=== PATIENT | male | born 1940 | race Caucasian/White ===

== ENCOUNTER 2018-10-23 15:53 | Emergency (ER) | payer OTHER, SELFPAY ==
[2018-10-23 15:56] VITALS: BP 145/69; PULSE 105; RESP 20; TEMP 36.8; O2SAT 97
[2018-10-23 16:14] LABS: Blood Large (Negative); Clarity Cloudy; Glucose Negative (Negative); Ketones 15 mg/dL (Negative); Nitrite Negative (Negative)
[2018-10-23 16:17] LABS: Leukocyte Esterase Color Interference (Negative)
[2018-10-23 16:18] LABS: Bilirubin Color Interference (Negative); Urobilinogen Color Interference EU/dL (Up TO 0.2)
[2018-10-23 16:19] LABS: RBC >50 (0-2); WBC 0-2 HPF (0-5)
[2018-10-23 16:20] LABS: C & S Indicated? Yes
--- NOTE | 2018-10-23 16:34 | DI.CT_ITS ---
SYMPTOM/DIAGNOSIS; PAINLESS HEMATURIA ABDOMEN AND PELVIC CT: CT scan of the abdomen and pelvis was performed without intravenous or oral contrast material. The visualized lung bases are clear. The lack of IV contrast does limit evaluation of the abdominal and pelvic organs. There are several hypodense lesions seen within the liver, the largest is in the inferior right lobe and measures 2.9 cm. Ultrasound from 07/03/11 does show hepatic cysts. The gallbladder is negative. It appears contracted. No biliary ductal dilatation is seen. The pancreas, spleen and adrenal glands are unremarkable. There is no evidence of nephrolithiasis or obstructive uropathy. The urinary bladder is intact. The prostate gland appears enlarged measuring 4.9 by 4.9 cm. Prostatic calcifications are seen. There is lobulated soft tissue seen in the base of the bladder. This may represent an enlarged prostate gland projecting into the urinary bladder. Prostate mass or bladder mass cannot be excluded. The bowel shows no evidence of obstruction or inflammation. There is a normal appendix present in the right lower quadrant. The abdominal aorta is of normal caliber. No significant abdominal or pelvic adenopathy is seen. No significant abdominal or pelvic ascites or pneumoperitoneum is present. Degenerative changes are seen in the spine. Schmorl's nodes are seen in the inferior endplates from T 12 through L 4 and the superior endplate of L 5. IMPRESSION: 1. No evidence of nephrolithiasis or obstructive uropathy. 2. Enlarged prostate gland. Soft tissue extension is seen into the base of the urinary bladder. Differential considerations include prostatic hypertrophy. Prostatic or bladder mass cannot be excluded. Urology consult is recommended.
--- NOTE | 2018-10-23 16:38 | ED.GENADUL_ITS ---
Discharge Plan Disposition Patient Disposition: HOME Condition: Good Discharge Details Chief Complaint: Urinary Clinical Impression: Hematuria Primary Care Provider: Tony Jones ED Provider: Jesus Zuniga Home Meds and New Rx's Prescriptions: No Action multivitamin 1 EACH tablet 1 ea PO DAILY RF: 0 terazosin 5 MG capsule 5 mg PO DAILY RF: 0 ascorbic acid (vitamin C) [Vitamin C] 500 MG tablet 500 mg PO DAILY RF: 0 hydrochlorothiazide 25 MG tablet 25 mg PO DAILY RF: 0 sildenafil (antihypertensive) 20 MG tablet 20 mg PO PRN RF: 0 aspirin 81 MG tablet,delayed release (DR/EC) 81 mg PO RF: 0 Discharge Instructions Instructions: Hematuria (ED) Additional Instructions: Your CT scan shows concern for a new mass in your bladder. Your blood levels are stable. Dr. Stinson's office should be contacting you shortly. If you do not hear back within a week please contact the ER. If you notice difficulty urinating, lightheadedness, fainting, palpitations, please return immediately for reassessment. if you notice any worsening of your symptoms, or any new symptoms such as vomiting, diarrhea, fever, chills, shortness of breath, chest pain, numbness, weakness, or fainting , please return immediately to the emergency department for reevaluation. Please follow up with your primary care provider as soon as possible for reassessment and reevaluation. As always, it was a pleasure participating in your medical care today. Referrals: Alexi Stinson MD [ [facility] STAFF PHYSICIAN] - Medical Decision Making This is a pleasant 78-year-old male with a past medical history of prostate enlargement and hypertension who presents today for evaluation of painless hematuria for the last 4 hours. He has no symptoms of back pain, flank pain, history of kidney stones. He denies any other complaints whatsoever. Exam is notably unremarkable with an uncircumcised penis, no urethral discharge, no bleeding, mass or tenderness of the penis or testicles. Due to the patient's age, and lack of history of kidney stones polyp, UTI, cancer, are on the differential. We will get a CT scan to rule out mass of the kidneys or bladder, and a basic laboratory work-up to evaluate for any bleeding abnormalities and reassess. Patient will most likely need close follow-up with urology. 5:[address] scan results have returned, no evidence of urolithiasis, however there is prostate enlargement with possible extension of the prostate into the bladder alternatively this could represent a mass arising within the bladder. Patient's laboratory work up demonstrates normal hemoglobin, normal platelets, normal renal function. Urinalysis shows no nitrites and no leuk esterase, notable RBCs. Signs and symptoms are consistent with continued hematuria potentially secondary to a new mass. The patient continues to be able to urinate well, no evidence of urinary retention. Patient will be discharged home as he is in no acute distress with reassuring vital signs and no signs of significant anemia. We will place a referral for prompt and urgent urology follow-up. We discussed red flags which to return the patient understands. I have extensively reviewed the treatment plan and discharge instructions with the patient and their family. I have addressed all patient concerns at this time. The patient and family was made aware of what symptoms to monitor for that would warrant a return to the emergency department. Discussed the plan with the patient and family, they demonstrate verbal understanding and agreement with our assessment and plan at this time. FINDINGS: ABDOMEN: Liver: Simple appearing lobulated liver cysts are present. The largest is in the inferior right liver lobe and seen to measure up to 2.9 cm. Gallbladder and bile ducts: Normal. No calcified stones. No ductal dilation. Pancreas: No ductal dilation. Spleen: No splenomegaly. Adrenals: No mass. Kidneys and ureters: Bilateral perinephric stranding is likely age-related. No hydronephrosis or stones. DIMITRIPHYLLIS Preliminary Radiology Report [employer] (QA) DISCREPANCY? If there is a discrepancy between the preliminary and final interpretation, please notify [facility] via [email or web address]. If you do not have access to our QA portal, call our QA team at [phone] CONFIDENTIALITY STATEMENT This report is intended only for the use of the referring physician, and only in accordance with law, If you received this in error, call [phone] Page 2 of 2 Stomach and bowel: Normal. No obstruction. No mucosal thickening. Appendix: No evidence of appendicitis. PELVIS: Bladder: Unremarkable as visualized. Reproductive: The prostate is enlarged with lobulation seen extending into the base of the bladder. ABDOMEN and PELVIS: Intraperitoneal space: Normal. No free air. No significant fluid collection. Bones/joints: No acute fracture. No dislocation. Soft tissues: Unremarkable. Vasculature: Atherosclerotic calcifications. Lymph nodes: Normal. No enlarged lymph nodes. IMPRESSION: Prostate enlargement with possible extension of the prostate into the bladder. Alternatively, this could represent a mass arising within the bladder, but adjacent to the prostate gland. Consider urology evaluation given hematuria. Thank you for allowing us to participate in the care of your patient. Dictated and Authenticated by: Jefferson López MD 10/23/2018 5:30 PM Eastern Time ([place] & [place]) HPI General Date/Time Provider Initiated Documentation: 10/23/18 16:03 . HPI Narrative: This is a 78-year-old male with past medical history of hypertension and enlarged prostate presents today for evaluation of painless hematuria. Patient states that roughly 4 hours ago he developed this hematuria when he had a urinary episode. 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 He denies any other complaints at this time. He denies any history of kidney stones. No other modifying factors. He is not on any blood thinners. Related Data Home Medications Medication Instructions Recorded Confirmed ascorbic acid (vitamin C) [Vitamin 500 mg PO DAILY 11/19/12 10/23/18 C] hydrochlorothiazide 25 mg PO DAILY tab-cap 11/19/12 10/23/18 multivitamin 1 ea PO DAILY 11/19/12 10/23/18 terazosin 5 mg PO DAILY tab-cap 11/19/12 10/23/18 sildenafil (antihypertensive) 20 mg PO PRN 11/20/12 10/23/18 aspirin 81 mg PO 11/05/17 Allergies Allergy/AdvReac Type Severity Reaction Status Date / Time ciprofloxacin [From Cipro] AdvReac Intermediate Skin Rash Unverified 10/23/18 15:57 BEE STINGS Allergy Uncoded 10/23/18 15:57 General Stated Complaint: Urinary RAY: 3 Review of Systems Review of Systems All systems reviewed & are unremarkable except as noted in HPI and below PFSH Medical History AVM LEFT COLON Adenomatous colon polyp BPH Bee sting allergy Dysthymia Essential hypertension HTN (hypertension) Hypercholesterolemia Hyperlipidemia Left inguinal hernia Low back pain Male erectile disorder Orthostatic dizziness Seborrheic keratosis Surgical History Colonoscopy - IV Sedation Family History Father Personal history of malignant neoplasm Uncle Personal history of malignant neoplasm Social History Smoking/Tobacco Use Status: Former Tobacco Use Drug use: Never Exam Narrative Exam Narrative: 1.Const: Well-nourished, Well-developed, appearing stated age 2.Eyes: PERRL, no conjunctival injection, and symmetrical lids. 3.ENT: Atraumatic external nose and ears. Moist MM. Neck: Symmetric, trachea midline, No thyromegaly. 4.CVS: +S1/S2, No murmurs or gallops. Peripheral pulses 2+ and equal in all extremities. Brisk capillary refill in all extremities. 5.RESP: Unlabored respiratory effort. Clear to auscultation bilaterally. No wheezes rales or rhonchi 6.GI: Soft, Nontender/Nondistended, No hepatosplenomegaly. No guarding or rebound. Normal external genitalia, no penile discharge, no indirect or direct inguinal hernia palpable when the patient stands up and/or bears down, no scrotal masses, no femoral groin pain for femoral bulge palpable, normal testes, non painful testicular exam, normal cremasteric reflex bilaterally. no urethral discharge or bleeding. no pain over the penis. 7.MSK: Normocephalic/Atraumatic, Extremities w/o deformity or ttp No cyanosis or clubbing, Normal movement of all extremities 8.Skin: Warm, Dry. No rashes or lesions. 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 Sensation grossly intact, no focal neurologic deficits. 10.Psych: (AAO) x3. Appropriate mood and affect Course Vital Signs Temperature 36.8 C 10/23/18 15:56 Pulse 105 H 10/23/18 15:56 Respiratory Rate 20 10/23/18 15:56 Blood Pressure 145/69 H 10/23/18 15:56 Pulse Oximetry 97 10/23/18 15:56 Temperature 36.8 C 10/23/18 15:56 Temperature Source Temporal Artery Scan 10/23/18 15:56 Pulse 105 H 10/23/18 15:56 Respiratory Rate 20 10/23/18 15:56 Respiratory Effort Non-Labored 10/23/18 15:56 Blood Pressure 145/69 H 10/23/18 15:56 Pulse Oximetry 97 10/23/18 15:56 Oxygen Delivery Method Room Air 10/23/18 15:56 Oxygen Flow Rate 0 10/23/18 15:56 Pain Level 0 10/23/18 15:58 Lab/Test Results Lab/Test Results: 10/23/18 16:02 Urine - Reflex from Ua Urine Culture - Pending Laboratory Tests Range/Units 10/23/18 16:02 Urine Color (Yellow) Red Urine Clarity Cloudy Urine pH Not Applicable Ur Specific [place] (1.005-1.025) 1.010 Urine Protein (Negative) mg/dL >=300 H Urine Ketones (Negative) mg/dL 15 H Urine Blood (Negative) Large H Urine Nitrite (Negative) Negative Urine Bilirubin (Negative) Color interference Urine Urobilinogen (Up TO 0.2) EU/dL Color interference Ur Leukocyte Esterase (Negative) Color interference Urine RBC (0-2) >50 H Urine WBC (0-5) HPF 0-2 Ur Epithelial Cells Not Applicable Urine Crystals Not Applicable Urine Bacteria Not Applicable Urine Mucus Not Applicable Ur Culture Indicated? Yes Urine Glucose (Negative) mg/dL Negative
[2018-10-23 16:47] LABS: Absolute Basophil Count 0.02 k/cumm (0.0-0.2); Absolute Eosinophil Count 0.12 k/cumm (0.0-0.7); Absolute Lymphocyte Count 0.95 k/cumm (1.2-3.4); Absolute Monocyte Count 0.55 k/cumm (0.11-0.7); Absolute Neutrophil Count 2.89 k/cumm (1.2-6.7); Basophils % 0.4; Eosinophils % 2.6; HCT 39.4 % (40.0-50.0); HGB 13.6 g/dL (13.5-17.5); Mean Corp. HGB Concentration 34.5 g/dL (32.0-36.0); Mean Corpuscular Hemoglobin 33.8 pg (27.0-33.0); Monocytes % 12.1; Neutrophils % 63.9; Platelet Count 130 x1000/uL (130-400); RBC 4.02 m/cumm (4.50-6.00); White Blood Cell Count 4.53 k/cumm (4.4-10.8)
[2018-10-23 16:59] LABS: PTT Activated 23.4 sec (21.0-31.4); Prothrombin Time 9.9 sec (9.3-11.0)
[2018-10-23 17:23] LABS: ALT 28 U/L (12-78); AST 23 U/L (15-37); Albumin 4.2 g/dL (3.4-5.0); Alkaline Phosphatase 66 U/L (46-116); Anion Gap 8.4 mmol/L (3-11); BUN 13 mg/dL (7-18); Bilirubin, Total 0.5 mg/dL (0.2-1.0); CO2 27.6 mmol/L (21.0-32.0); CREATININE 0.83 mg/dL (0.70-1.30); Chloride 104 mmol/L (98-107); Glucose 98 mg/dL (70-100); Potassium 3.7 mmol/L (3.5-5.1); Sodium 140 mmol/L (136-145)
[2018-10-23 17:42] LABS: Total Protein 7.3 g/dL (6.4-8.2)
[2018-10-23 18:00] VITALS: BP 143/77; PULSE 72; RESP 18; O2SAT 100
--- NOTE | 2018-10-23 20:41 | DI.VRAD_ITS ---
EXAM: CT Abdomen and Pelvis Without Contrast EXAM DATE/TIME: 10/23/2018 4:35 PM CLINICAL HISTORY: 78 years old, male; Signs and symptoms; Prior surgery; Surgery date: 6+ months; Surgery type: Hernia repair 2 years ago. ; Patient HX: Gross hematuria with no pain, no flank pain, no HX of kidney stones. TECHNIQUE: Imaging protocol: Axial computed tomography images of the abdomen and pelvis without contrast. Coronal and sagittal reformatted images were created and reviewed. Radiation optimization: All CT scans at this facility use at least one of these dose optimization techniques: automated exposure control; mA and/or kV adjustment per patient size (includes targeted exams where dose is matched to clinical indication); or iterative reconstruction. COMPARISON: No relevant prior studies available. FINDINGS: ABDOMEN: Liver: Simple appearing lobulated liver cysts are present. The largest is in the inferior right liver lobe and seen to measure up to 2.9 cm. Gallbladder and bile ducts: Normal. No calcified stones. No ductal dilation. Pancreas: No ductal dilation. Spleen: No splenomegaly. Adrenals: No mass. Kidneys and ureters: Bilateral perinephric stranding is likely age-related. No hydronephrosis or stones. Stomach and bowel: Normal. No obstruction. No mucosal thickening. Appendix: No evidence of appendicitis. PELVIS: Bladder: Unremarkable as visualized. Reproductive: The prostate is enlarged with lobulation seen extending into the base of the bladder. ABDOMEN and PELVIS: Intraperitoneal space: Normal. No free air. No significant fluid collection. Bones/joints: No acute fracture. No dislocation. Soft tissues: Unremarkable. Vasculature: Atherosclerotic calcifications. Lymph nodes: Normal. No enlarged lymph nodes. IMPRESSION: Prostate enlargement with possible extension of the prostate into the bladder. Alternatively, this could represent a mass arising within the bladder, but adjacent to the prostate gland. Consider urology evaluation given hematuria. Dictated and Authenticated by: Jefferson López MD. Ordering:BEN Lee MD
--- NOTE | 2018-10-28 07:59 | PDOC.ERCMPRO ---
Care Management Progress Note 10/28-Dr. Zuniga requested assistance with an emergent urology f/u for anabell hematuria/new bladder mass. Referral faxed to urology this am.
== END 2018-10-23 17:57 | disposition home or self-care (01) ==
PROVIDERS: Emergency Provider Student in an Organized Health Care Education/Training Program; PCP Internal Medicine
DX: N40.1 Benign prostatic hyperplasia with lower urinary tract symptoms (principal); R31.9 Hematuria, unspecified; I10 Essential (primary) hypertension
CPT/HCPCS: 80053; 99284; 74176; 81003; 81015; 85025; 85610; 85730; 87086

== ENCOUNTER → 2018-10-28 12:33 | Outpatient (BNVA) | payer OTHER, SELFPAY | PROVIDERS: PCP Internal Medicine; Visit Provider Nurse Practitioner Gerontology | DX: R31.0 Gross hematuria (principal); N40.0 Benign prostatic hyperplasia without lower urinary tract symptoms; Z80.42 Family history of malignant neoplasm of prostate | CPT/HCPCS: 99204; 99215 ==

== ENCOUNTER 2018-11-10 09:09 | Day surgery (SDC) | payer OTHER, SELFPAY ==
[2018-11-10] VITALS (8 sets, daily range): BP systolic 126–168; BP diastolic 69–81; PULSE 58–80; RESP 9–16; TEMP 35.7–36.7; O2SAT 95–100
--- NOTE | 2018-11-10 09:38 | DI.RAD_ITS ---
SYMPTOMS/DIAGNOSIS: HEMATURIA C-ARM FLUOROSCOPY: Fluoroscopy Time: 35.2 sec Fluoroscopy was provided for Dr. Stinson while performing a retrograde examination. Please see procedure note for details.
[2018-11-10] MEDS: Lactated Ringers 1,000 ML 80 ML IV (10:15)
[2018-11-10] MEDS: ceFAZolin 1 GM/50 ML BAG IVPB (10:30)
[2018-11-10] MEDS: Lidocaine 2% Jelly 11 ML SYR (10:37)
[2018-11-10] MEDS: Omnipaque 300 MG/ML 50 ML BTL (10:37)
--- NOTE | 2018-11-10 11:07 | W.PM.DSUDISC ---
Discharge Plan Disposition Patient Disposition: HOME Condition: Stable Discharge Details Attending Provider: Alexi Stinson Primary Care Provider: Tony Jones Home Meds and New Rx's Prescriptions: No Action atorvastatin 20 mg tablet 20 mg PO DAILY RF: 0 lisinopril 5 mg tablet 5 mg PO DAILY RF: 0 multivitamin 1 EACH tablet 1 ea PO DAILY RF: 0 terazosin 5 MG capsule 5 mg PO DAILY RF: 0 ascorbic acid (vitamin C) [Vitamin C] 500 MG tablet 500 mg PO DAILY RF: 0 aspirin 81 MG tablet,delayed release (DR/EC) 81 mg PO RF: 0 Discharge Instructions Additional Instructions: follow up 3 months (sooner if problems urinating) pt must void prior to discharge Activity:: Activity as Tolerated Shower/Bathe:: 24 hours Diet:: As Tolerated DS: Diagnosis Discharge Diagnosis (1) Gross hematuria: Status: Acute
[2018-11-10] MEDS: Finasteride 5 MG TAB PO ×2 (11:44→11:46)
[2018-11-10] MEDS: Phenazopyridine 200 MG TAB PO (12:32)
--- NOTE | 2018-11-10 15:31 | ROE_ITS ---
DATE OF PROCEDURE: November 10, 2018 PREOPERATIVE DIAGNOSIS: Gross hematuria. POSTOPERATIVE DIAGNOSIS: Same secondary to prostatic enlargement. PROCEDURE: Cystoscopy with right retrograde pyelogram. SURGEON: Alexi Stinson M.D. ANESTHESIA: General. COMPLICATIONS: None. HISTORY: This is a 78-year-old gentleman who presented to the Emergency Room with gross hematuria an d clots. He was evaluated with a non-contrast CT scan which demonstrated no kidney stones and no felisha al masses. There was some tissue at the base of his bladder which was unclear as to whether it invol malik the prostate or a bladder mass. He presents for a cystoscopy and retrograde pyelogram to complet e his hematuria workup. If any abnormality is identified, we will be prepared to do a transurethral resection of any bladder tumor. OPERATIVE REPORT: The patient was brought to the Operating Room on 11/10/18. After successful induct ion of general anesthesia, he was placed in the dorsal lithotomy position. His genitalia was prepped and draped. A 22 [place] rigid cystoscope was passed through the urethra into the bladder. The urethra and bladde r were inspected with the 30-degree lens. The pendulous, bulbous and membranous urethras all appeared normal with no strictures. The prostatic urethra showed trilobar hypertrophy. No active bleeding was identified, but the prostate appeared q uite friable and did develop some hematuria when I passed the scope. In the bladder I was able to visualize both ureteral orifices. No blood was seen coming from either side. I was unable to cannulate either side directly with a 6 [place] access catheter. I was, nasima r, able to pass a Glidewire into the right ureteral orifice. I then advanced the access catheter ove r the wire and was able to do a retrograde pyelogram. I did not see any filling defects in the ureter or collecting systems. There was some extravasation of contrast from over-injection on the retrograde. On the left side I again could visualize the ureteral orifice and see no blood coming from it, but I was unable to cannulate the orifice with wire or catheter. We then elected not to do the left retrog rade pyelogram. We inspected the remainder of the bladder using both a 30 and a 70-degree lens. We saw that the blad viviana was trabeculated, but no papillary or nodular lesions were seen. The bladder was emptied and the scope was removed. Based on today's examination it appears that the bleeding is a result of prostatic enlargement. We will treat this gentleman with a 5-alpha reductase inhibitor to decrease the size and vascularity of the prostate. If the hematuria persists we can al ways vaporize the prostate with a plasma button. The patient tolerated this procedure well. There were no complications. cc: Tony Jones M.D.
== END 2018-11-10 13:08 | disposition home or self-care (01) ==
PROVIDERS: PCP Internal Medicine; Visit Provider Urology
PROC: (CPT 74450; principal; 2018-11-10 11:00)
DX: N40.1 Benign prostatic hyperplasia with lower urinary tract symptoms (principal); R31.0 Gross hematuria; N32.89 Other specified disorders of bladder
CPT/HCPCS: 52005; 74420; J0690; J1100; J1885; J2405; Q9967

== ENCOUNTER 2018-11-16 11:12 | Inpatient (IN) | payer OTHER, SELFPAY ==
[2018-11-16 11:18] VITALS: BP 147/68; PULSE 83; RESP 14; TEMP 36.7; O2SAT 96
--- NOTE | 2018-11-16 12:09 | NUR.NOTE ---
Nursing Note:rn atempted to place 16 FR folley however unable to get past clot
[2018-11-16] MEDS: Lidocaine 2% Jelly 11 ML SYR UR (13:19)
--- NOTE | 2018-11-16 14:47 | NUR.NOTE ---
Nursing Note: 3 way urethral catheter errigated with 1L of NS 50-60 small clots passed last 250 of NS light pink free of clots
[2018-11-16 14:55] LABS: Bilirubin Negative (Negative); Blood Large (Negative); Clarity Cloudy; Glucose Negative (Negative); Ketones Negative (Negative); Leukocyte Esterase Negative (Negative); Nitrite Negative (Negative); Urobilinogen 0.2 EU/dL (Up TO 0.2)
[2018-11-16 14:57] LABS: C & S Indicated? No
--- NOTE | 2018-11-16 15:44 | W.ED.GENAD ---
Discharge Plan Disposition Patient Disposition: [facility] INPATIENT Condition: Good Discharge Details Chief Complaint: Urinary Clinical Impression: Gross hematuria Admit Date/Time: 11/16/18 17:42 Admit Provider: Roxi De La Fuente Attending Provider: Roxi De La Fuente Primary Care Provider: Tony Jones ED Provider: Jesus Zuniga Hospital Course Hospital Course: Mr Bettencourt is a 78 year old male with past medical history significant for hematuria due to prostatic hypertrophy, having undergone cystoscopy with retrograde pyelogram on 11/10/[address] Stinson in workup thereof, as well as hypertension, hyperlipidemia, depression, who presented to the ED on 11/16/18 with hematuria, as well as dysuria, frequency, urgency and inability to empty his bladder. In the ED, he passed a large blood clot with relief of symptoms. A three-way urinary catheter was inserted and CBI initiated in the ED. He was admitted to the floor for continuous bladder irrigation. He remained on CBI overnight. He was seen by Urology this morning who noted that his urine was clear with the bladder irrigation running at a slow rate. He preformed hand irrigation and did not obtain any additional clots. He discontinued the CBI. His urine remained clear and the cleary catheter was discontinued. He was able to void without significant urinary retention. He initially had some small clots in his urine but they eventually cleared. His urine remained clear. His bladder scans showed 60-80s. His case was discussed with Dr. Stinson who felt the patient was safe for discharge. He was previously started on Finasteride and terazosin. If this regimen is not successful, urology will consider a vaporization of the prostate. He is discharged home on this regimen and he will follow up with Urology as an outpatient. He will follow up with his PCP as scheduled. Given the hematuria, he will be asked to hold his aspirin until his PCP clears him to restart it. Discharge Instructions Instructions: Benign Prostatic Hypertrophy (DC) Additional Instructions: Follow up with urology as scheduled. You should call Dr. Stinson's office to see if he wants you to be seen before January. Continue taking Finasteride and terazosin. Do not take aspirin until your PCP says it is safe to restart it. Follow up with your PCP as scheduled. Take care! Forms: Nursing Discharge Form Referrals: Alexi Stinson MD [ [facility] STAFF PHYSICIAN] - 02/23/19 8:30 am Tony Jones MD [Primary Care Provider] - 12/01/18 2:45 pm Discharge Data Discharge Date/Time-TO BE ENTERED AT DEPARTURE: 11/16/18 18:30 Medical Decision Making <Jay Houser NP - Last Filed: 11/23/18 08:58> Patient presenting to the emergency department for chief complaint of bloody urination and difficulty with urinating. Patient states that he recently had a procedure done by Dr. Stinson 5 days ago. Physical exam is unremarkable except for mild suprapubic tenderness. staff therapist did bladder scan that showed greater than 400 mL's retained in the bladder. staff therapist attempted to place Cleary catheter which they were not able to put in place. Urojet was utilized prior to insertion of a three-way catheter. When I entered the room to put in the three-way catheter patient had passed a large clot that was approximately 2 inches in size. Patient stated relief of symptoms after passing a clot. Three-way catheter was inserted using sterile technique. Patient continued to have hematuria with clot passage. Patient had 1 L of irrigation with staff therapist stating significant passage of clots. Due to this continuous bladder irrigation was ordered. Patient is otherwise stable. Review of urinalysis shows negative for nitrates and leukocyte esterase but significant amount of blood. Given this and that patient is afebrile I do not think this is due to infection but more due to bleeding. Patient placed up on continuous bladder irrigation. <Jesus Zuniga DO - Last Filed: 11/16/18 17:43> The case was signed out to me by my colleague Jay Houser. Please refer to his documentation for initial HPI. Patient was signed out pending improvement of symptoms with continuous bladder irrigation. Unfortunately there are no more clots but he does have continued notable blood with his irrigation. He remains hemodynamically stable. Multiple attempts were attempted to reach Dr. Stinson, however of note he is not on-call. We have not been able to get in contact with him. Although I do not feel that there is any indication for emergent management, I do feel that the patient still requires a Cleary for this current time. I had a long conversation with the patient and his about going home and flushing the Cleary versus staying here. At this time the patient and his do not feel comfortable with going home and flushing it on their own if he does develop a clot. I completely understand her position. Because of this I did contact the hospitalist Dr. De La Fuente discussed the case with her. She agrees with the current plan. She will place admission orders. Patient will be admitted for continuous bladder irrigation. I have extensively reviewed the treatment plan with the patient. I have addressed all patient concerns at this time. I have also discussed the plan with the admitting physician and they agree with the current assessment and plan and have agreed to assume responsibility for the patient. All parties demonstrate verbal understanding and agreement with our assessment and plan at this time. We did order basic labs, which have not yet returned. Hospitalist will be following up on these. HPI <Jay Houser NP - Last Filed: 11/23/18 08:58> General Mode of arrival: ambulatory. Date/Time Provider Initiated Documentation: 11/16/18 11:26. Limitations to Documentation: no limitations. Information obtained by: patient, RN notes reviewed and old records reviewed. History of Present Illness 78 year old M presents to the emergency department with the chief complaint of Difficulty urinating, described as moderate, with intensity rated at 2. Quality is described as burning, and is localized to the pelvis (Penis, with urination). Patient started experiencing this day(s) (1) and it has been constant. Patient notes no other symptoms.. Patient did receive the following treatments prior to arrival, none Related Data Home Medications Medication Instructions Recorded Confirmed ascorbic acid (vitamin C) [Vitamin 500 mg PO DAILY 11/19/12 11/16/18 C] multivitamin 1 ea PO DAILY 11/19/12 11/16/18 atorvastatin 20 mg tablet 20 mg PO DAILY 10/28/18 11/16/18 lisinopril 5 mg tablet 5 mg PO DAILY 10/28/18 11/16/18 finasteride 5 mg PO DAILY #90 tab 11/10/18 11/16/18 terazosin 10 mg PO DAILY 11/16/18 11/16/18 cephalexin 500 mg capsule 500 mg PO BID #10 cap 11/18/18 11/18/18 tramadol 50 mg tablet 50 mg PO Q6H PRN #12 tab 11/18/18 11/18/18 Previous Rx's Medication Instructions Recorded finasteride 5 mg PO DAILY #90 tab 11/10/18 cephalexin 500 mg capsule 500 mg PO BID #10 cap 11/18/18 tramadol 50 mg tablet 50 mg PO Q6H PRN #12 tab 11/18/18 Allergies Allergy/AdvReac Type Severity Reaction Status Date / Time ciprofloxacin [From Cipro] AdvReac Intermediate Skin Rash Verified 11/16/18 11:21 BEE STINGS Allergy Uncoded 10/23/18 15:57 General Stated Complaint: Urinary RAY: 3 Review of Systems <Jay Houser NP - Last Filed: 11/23/18 08:58> Constitutional Denies body ache(s), Denies chills, Denies fever(s), Denies malaise and Denies weakness Cardiovascular Denies chest pain Respiratory Reports system reviewed and no additional complaints, except as docu Gastrointestinal Denies abdominal pain, Denies nausea and Denies vomiting Genitourinary Reports as per HPI, Reports hematuria, Reports difficulty urinating, Reports dysuria, Denies flank pain, Denies penile discharge, Denies scrotal swelling, Reports urinary incontinence and Reports urinary urgency Neurologic Denies confusion and Denies weakness Psychiatric Denies confusion PFSH <Jay Houser NP - Last Filed: 11/23/18 08:58> Medical History AVM LEFT COLON Adenomatous colon polyp BPH Bee sting allergy Dysthymia Essential hypertension HTN (hypertension) Hypercholesterolemia Hyperlipidemia Left inguinal hernia Low back pain Male erectile disorder Orthostatic dizziness Seborrheic keratosis Surgical History Hx of cystoscopy (Chronic) H/O inguinal hernia repair (Chronic) Colonoscopy - IV Sedation Family History Father Personal history of malignant neoplasm Prostate cancer Uncle Personal history of malignant neoplasm Prostate cancer Social History Smoking/Tobacco Use Status: Former Tobacco Use Alcohol Intake: current Alcohol Intake frequency: 0-2 drinks per day Alcohol type: beer Drug use: Never Substance use type: does not use Do you feel safe at home: Yes Do you feel safe in your relationship?: Yes Exam <Jay Houser NP - Last Filed: 11/23/18 08:58> Const General: cooperative and no acute distress Orientation: alert, awake and oriented x3 Resp Effort & Inspection: normal respiratory effort and able to speak in complete sentences Auscultation: clear to auscultation bilaterally Cardio Rate: regular rate Rhythm: regular rhythm Heart Sounds: S1 normal and S2 normal GI Palpation: tender suprapubicly Penis: normal penis Meatus: meatus normal Testes: testicular swelling on the right and no testicular tenderness Back/Spine/Pelvis Back: no CVA tenderness Neuro General: alert, awake and oriented x3 Extrem General: normal capillary refill Course <aJy Houser NP - Last Filed: 11/23/18 08:58> Vital Signs Temperature 36.7 C 11/16/18 11:18 Pulse 83 11/16/18 11:18 Respiratory Rate 14 11/16/18 11:18 Blood Pressure 147/68 H 11/16/18 11:18 Pulse Oximetry 96 11/16/18 11:18 Temperature 36.7 C 11/16/18 11:18 Temperature Source Temporal Artery Scan 11/16/18 11:18 Pulse 83 11/16/18 11:18 Respiratory Rate 14 11/16/18 11:18 Respiratory Effort Non-Labored 11/16/18 11:19 Blood Pressure 147/68 H 11/16/18 11:18 Blood Pressure Position Sitting 11/16/18 11:18 Pulse Oximetry 96 11/16/18 11:18 Pain Level 2 11/16/18 11:18 Lab/Test Results Lab/Test Results: Laboratory Tests Range/Units 11/16/18 14:40 Urine Color (Yellow) Red Urine Clarity Cloudy Urine pH (5-8) 7.0 Ur Specific [place] (1.005-1.025) 1.020 Urine Protein (Negative) mg/dL 100 H Urine Ketones (Negative) mg/dL Negative Urine Blood (Negative) Large H Urine Nitrite (Negative) Negative Urine Bilirubin (Negative) Negative Urine Urobilinogen (Up TO 0.2) EU/dL 0.2 Ur Leukocyte Esterase (Negative) Negative Urine RBC (0-2) Urine WBC Not Applicable Ur Epithelial Cells Not Applicable Urine Crystals Not Applicable Urine Bacteria Not Applicable Urine Mucus Not Applicable Ur Culture Indicated? No Urine Glucose (Negative) mg/dL Negative Sign Out <Jay Houser NP - Last Filed: 11/23/18 08:58> Sign Out Data: Sign Out Comment: Pending continuous bladder irrigation patient signed out to Dr. Zuniga. Last updated by Jay Houser NP at 11/16/18 15:59
[2018-11-16 17:52] VITALS: BP 140/65; PULSE 83; RESP 16; TEMP 36.7; O2SAT 98
[2018-11-16 17:57] LABS: Abs Immature Grans 0.01 k/cumm (0.0-0.09); Absolute Basophil Count 0.02 k/cumm (0.0-0.2); Absolute Eosinophil Count 0.06 k/cumm (0.0-0.7); Absolute Lymphocyte Count 0.91 k/cumm (1.2-3.4); Absolute Monocyte Count 0.68 k/cumm (0.11-0.7); Absolute Neutrophil Count 5.24 k/cumm (1.2-6.7); Basophils % 0.3; Eosinophils % 0.9; HCT 37.4 % (40.0-50.0); HGB 12.8 g/dL (13.5-17.5); Immature Grans % 0.1; Lymphocytes % 13.2; Mean Corp. HGB Concentration 34.2 g/dL (32.0-36.0); Mean Corpuscular Hemoglobin 33.6 pg (27.0-33.0); Mean Corpuscular Volume 98.2 fL (80-95); Mean Platelet Volume 9.5 fL (8.0-11.0); Monocytes % 9.8; Neutrophils % 75.7; Platelet Count 150 x1000/uL (130-400); RBC 3.81 m/cumm (4.50-6.00); RBC Distribution Width 13.1 % (11.8-14.1); White Blood Cell Count 6.92 k/cumm (4.4-10.8)
[2018-11-16 18:11] LABS: ALT 28 U/L (12-78); AST 22 U/L (15-37); Albumin 3.7 g/dL (3.4-5.0); Alkaline Phosphatase 66 U/L (46-116); Anion Gap 8.6 mmol/L (3-11); BUN 12 mg/dL (7-18); Bilirubin, Total 0.7 mg/dL (0.2-1.0); CO2 28.4 mmol/L (21.0-32.0); CREATININE 0.81 mg/dL (0.70-1.30); Calcium 8.9 mg/dL (8.5-10.1); Chloride 108 mmol/L (98-107); Glucose 106 mg/dL (70-100); Sodium 145 mmol/L (136-145); Total Protein 6.8 g/dL (6.4-8.2)
[2018-11-16 18:31] VITALS: BP 140/65; PULSE 83; RESP 16; TEMP 36.7; O2SAT 98
[2018-11-16 18:41] VITALS: BP 149/76; PULSE 64; RESP 17; TEMP 36.1; O2SAT 97
--- NOTE | 2018-11-16 19:15 | NUR.NOTE ---
Nursing Note: Pt to [facility] floor via stretcher from ER at 1835. A&Ox3. VSS, lungs clear, HR regular. Three way bladder irrigation/catheter in place. Pt oriented to [facility] floor, call mao, TV, etc. Call mao within reach. Admission part II completed. Report given to oncoming RN. RN will continue to monitor.
[2018-11-16 19:20] VITALS: BP 160/83; PULSE 66; RESP 16; TEMP 35.8; O2SAT 98
--- NOTE | 2018-11-16 19:55 | W.PM.HP.N ---
Date of service: 11/16/18 Time of Service: 19:57 Assessment and Plan (1) Gross hematuria: Current visit: No Status: Acute Patient underwent cystoscopy with bilateral retrograde pyelogram on 11/10/18. Continue CBI initiated in ED; consult urology in am. (2) Enlarged prostate: Current visit: No Status: Chronic Continue terazosin and proscar (3) Coarse tremors: Current visit: Yes Status: Acute While my impression that these are likely due to anxiety, the patient did have recent instrumentation. There is no evidence of UTI, but we will obtain blood cultures to ensure no bacteremia. Additionally, the patient does drink alcohol on daily basis. I am not convinced that he abuses it, but to be safe we will assess CIWA/provide prn ativan and vitamins. (4) Hypertension: Current visit: Yes Status: Chronic Continue lisinopril (5) Hyperlipidemia: Current visit: Yes Status: Acute continue atorvastatin (6) Discharge planning issues: Current visit: Yes Status: Acute Full code (7) DVT prophylaxis: Current visit: Yes Status: Acute TEDs + SCDs. We will hold chemical DVT ppx due to hematuria History of Present Illness Chief Complaint: Blood in urine; difficulty urinating Narrative: Mr Bettencourt is a 78 year old male with PMHx of hematuria due to prostatic hypertrophy, having undergone cystoscopy with retrograde pyelogram on 11/10/[address] Stinson in workup thereof, as well as hypertension, hyperlipidemia, depression, who stated that ever since this morning he has had worsening of hematuria, as well as dysuria, frequency, urgency and inability to empty his bladder. In the ED, he passed a large blood clot with relief of symptoms. A three-way urinary catheter was inserted and CBI initiated. We were asked to admit the patient for further care with urology follow up in the morning. Upon my interview, patient specifically denies fevers at home, but states he occasionally gets tremors when he is in tight situations, when he is out of his comfort zone or when he is angry. He is having generalized tremors at the time of the interview. He states he is not angry at anyone at this time, admits to possibly being anxious. He is afebrile at the time of the interview, and his BG is 155. Review of Systems Review of Systems 12 systems reviewed. Pertinent positives and negatives are as per HPI. Additionally, the patient states that his last drink was yesterday. He states he does not normally go into alcohol withdrawal, but he also states he hasn't tried to stop. He has never had a seizure. [facility] Medical History AVM LEFT COLON Adenomatous colon polyp BPH Bee sting allergy Dysthymia Essential hypertension HTN (hypertension) Hypercholesterolemia Hyperlipidemia Left inguinal hernia Low back pain Male erectile disorder Orthostatic dizziness Seborrheic keratosis Surgical History Hx of cystoscopy (Chronic) H/O inguinal hernia repair (Chronic) Colonoscopy - IV Sedation Family History Father Personal history of malignant neoplasm Prostate cancer Uncle Personal history of malignant neoplasm Prostate cancer Social History Smoking/Tobacco Use Status: Former Tobacco Use Alcohol Intake: current Alcohol Intake frequency: 0-2 drinks per day Alcohol type: beer Drug use: Never Substance use type: does not use Do you feel safe at home: Yes Do you feel safe in your relationship?: Yes Meds Home Medications Medication Instructions Recorded Confirmed Type ascorbic acid (vitamin C) [Vitamin 500 mg PO DAILY 11/19/12 11/16/18 History C] multivitamin 1 ea PO DAILY 11/19/12 11/16/18 History aspirin 81 mg PO 11/05/17 10/28/18 History atorvastatin 20 mg tablet 20 mg PO DAILY 10/28/18 11/16/18 History lisinopril 5 mg tablet 5 mg PO DAILY 10/28/18 11/16/18 History finasteride 5 mg PO DAILY #90 tab 11/10/18 11/16/18 Rx terazosin 10 mg PO DAILY 11/16/18 11/16/18 History Allergies Allergy/AdvReac Type Severity Reaction Status Date / Time ciprofloxacin [From Cipro] AdvReac Intermediate Skin Rash Verified 11/16/18 11:21 BEE STINGS Allergy Uncoded 10/23/18 15:57 Exam Narrative Exam Narrative: General: Pleasant middle-aged male, tremulous diffusely, comfortable in bed, A&Ox3, anxious Neurological: A&Ox3, no focal deficits Psychiatric: anxious, affect somewhat flat; tremors appear a part of anxiety Skin: intact HEENT: Atraumatic, normocephalic, EOMI, dry MM, clear oropharynx, dry MM, no submandibular or cervical lymphadenopathy, no goiter or JVD Cardiovascular: RRR, no m/r/g, occasional skipped beat Lungs: CTAB Gastrointestinal: abdomen is soft, nontender, nondistended Genitourinary: has a cleary, connected to CBI, blood tinged urine (caballero) Extremities: no e/c/c BLE's, 2+ pedal pulses B Results Labs : 11/16/18 17:40 11/16/18 17:40 Laboratory Results - last 24 hr 11/16/18 11/16/18 11/16/18 14:40 17:40 17:40 WBC 6.92 RBC 3.81 L Hgb 12.8 L Hct 37.4 L MCV 98.2 H MCH 33.6 H MCHC 34.2 RDW 13.1 Plt Count 150 MPV 9.5 Immature Gran % 0.1 Neutrophils % 75.7 Lymphocytes % 13.2 Monocytes % 9.8 Eosinophils % 0.9 Basophils % 0.3 Absolute Neutrophils 5.24 Absolute Lymphocytes 0.91 L Absolute Monocytes 0.68 Absolute Eosinophils 0.06 Absolute Basophils 0.02 Sodium 145 Potassium 4.0 Chloride 108 H Carbon Dioxide 28.4 Anion Gap 8.6 BUN 12 Creatinine 0.81 Estimated GFR/1.73 m2 >= 60.00 Glucose 106 H Calcium 8.9 Total Bilirubin 0.7 AST 22 ALT 28 Alkaline Phosphatase 66 Total Protein 6.8 Albumin 3.7 Urine Color Red Urine Clarity Cloudy Urine pH 7.0 Ur Specific [place] 1.020 Urine Protein 100 H Urine Ketones Negative Urine Blood Large H Urine Nitrite Negative Urine Bilirubin Negative Urine Urobilinogen 0.2 Ur Leukocyte Esterase Negative Urine RBC Urine WBC Not Applicable Ur Epithelial Cells Not Applicable Urine Crystals Not Applicable Urine Bacteria Not Applicable Urine Mucus Not Applicable Ur Culture Indicated? No Urine Glucose Negative Last Vital Signs Temp 36.1 C L 11/16/18 18:41 Pulse 64 11/16/18 18:41 Resp 17 11/16/18 18:41 BP 149/76 H 11/16/18 18:41 Pulse Ox 97 11/16/18 18:41
[2018-11-16] MEDS: LORazepam 1 MG TAB PO/SL (20:31)
[2018-11-16 23:42] VITALS: BP 121/65; PULSE 72; RESP 20; TEMP 36.8; O2SAT 97
[2018-11-17 03:35] VITALS: BP 117/69; PULSE 69; RESP 18; TEMP 36.7; O2SAT 97
[2018-11-17 06:52] LABS: HCT 37.1 % (40.0-50.0); HGB 12.7 g/dL (13.5-17.5); Mean Corp. HGB Concentration 34.2 g/dL (32.0-36.0); Mean Corpuscular Volume 99.5 fL (80-95); Mean Platelet Volume 9.5 fL (8.0-11.0); Platelet Count 139 x1000/uL (130-400); RBC 3.73 m/cumm (4.50-6.00); RBC Distribution Width 13.5 % (11.8-14.1)
--- NOTE | 2018-11-17 07:05 | UCONE_ITS ---
Date of service: 11/17/18 Time of Service: 07:20 History of Present Illness Narrative: Chief complaint: Gross hematuria This is a 78-year-old gentleman who was originally referred to us from the emergency room. He had presented with gross hematuria. His initial evaluation was with a noncontrast CT scan. There was a question of a mass at the base of the bladder although it was felt it could also represent his prostate gland. He was further evaluated with a cystoscopy. At the time of cystoscopy, no bladder mass was found. The area in question seem to be the prostate. I was able to do a right retrograde pyelogram which showed no ureteral pathology. I could see the left ureteral orifice but I was not able to cannulate it successfully so no left retrograde was done We started him on finasteride to decrease the size and vascularity of the prostate to help control his bleeding. Our fallback position was to vaporize the prostate if he had continued bleeding He presented to the emergency room yesterday unable to urinate. He tells me that a large clot was evacuated in the emergency room. Since then, he has had continuous bladder irrigation. No additional clots or clot retention has been reported. He is not having any fevers or chills. Review of Systems Review of Systems No fevers or chills No vision change or dysphasia No diabetes or thyroid dysfunction No shortness of breath, cough or hemoptysis No chest pain or palpitations No nausea, vomiting, hepatitis, ulcers, jaundice, diarrhea or constipation No seizures, strokes or peripheral neuropathy No bleeding disorders or anemia No gout PFSH Medical History AVM LEFT COLON Adenomatous colon polyp BPH Bee sting allergy Dysthymia Essential hypertension HTN (hypertension) Hypercholesterolemia Hyperlipidemia Left inguinal hernia Low back pain Male erectile disorder Orthostatic dizziness Seborrheic keratosis Surgical History Hx of cystoscopy (Chronic) H/O inguinal hernia repair (Chronic) Colonoscopy - IV Sedation Social History Smoking/Tobacco Use Status: Former Tobacco Use Alcohol Intake: current Alcohol Intake frequency: 0-2 drinks per day Alcohol type: beer Drug use: Never Substance use type: does not use Do you feel safe at home: Yes Do you feel safe in your relationship?: Yes Exam Narrative Exam Narrative: He is a very pleasant older gentleman. He does not appear septic or toxic. His vital signs are documented elsewhere in the chart His urine is clear with the bladder irrigation running at a slow rate. I hand irrigated his catheter and did not obtain any additional clots. I stopped his bladder irrigation at the time of our encounter. He is awake, alert and oriented. I reviewed his lab work. His renal function is normal. His hemoglobin is stable. Results Last Vital Signs Temp 36.7 C 11/17/18 03:35 Pulse 69 11/17/18 03:35 Resp 18 11/17/18 03:35 BP 117/69 11/17/18 03:35 Pulse Ox 97 11/17/18 03:35 Labs : 11/17/18 06:35 11/17/18 06:35 Laboratory Results - last 24 hr 11/16/18 11/16/18 11/16/18 14:40 17:40 17:40 WBC 6.92 RBC 3.81 L Hgb 12.8 L Hct 37.4 L MCV 98.2 H MCH 33.6 H MCHC 34.2 RDW 13.1 Plt Count 150 MPV 9.5 Immature Gran % 0.1 Neutrophils % 75.7 Lymphocytes % 13.2 Monocytes % 9.8 Eosinophils % 0.9 Basophils % 0.3 Absolute Neutrophils 5.24 Absolute Lymphocytes 0.91 L Absolute Monocytes 0.68 Absolute Eosinophils 0.06 Absolute Basophils 0.02 Sodium 145 Potassium 4.0 Chloride 108 H Carbon Dioxide 28.4 Anion Gap 8.6 BUN 12 Creatinine 0.81 Estimated GFR/1.73 m2 >= 60.00 Glucose 106 H Calcium 8.9 Total Bilirubin 0.7 AST 22 ALT 28 Alkaline Phosphatase 66 Total Protein 6.8 Albumin 3.7 Urine Color Red Urine Clarity Cloudy Urine pH 7.0 Ur Specific [place] 1.020 Urine Protein 100 H Urine Ketones Negative Urine Blood Large H Urine Nitrite Negative Urine Bilirubin Negative Urine Urobilinogen 0.2 Ur Leukocyte Esterase Negative Urine RBC Urine WBC Not Applicable Ur Epithelial Cells Not Applicable Urine Crystals Not Applicable Urine Bacteria Not Applicable Urine Mucus Not Applicable Ur Culture Indicated? No Urine Glucose Negative 11/17/18 06:35 WBC 6.10 RBC 3.73 L Hgb 12.7 L Hct 37.1 L MCV 99.5 H MCH 34.0 H MCHC 34.2 RDW 13.5 Plt Count 139 MPV 9.5 Immature Gran % Neutrophils % Lymphocytes % Monocytes % Eosinophils % Basophils % Absolute Neutrophils Absolute Lymphocytes Absolute Monocytes Absolute Eosinophils Absolute Basophils Sodium Potassium Chloride Carbon Dioxide Anion Gap BUN Creatinine Estimated GFR/1.73 m2 Glucose Calcium Total Bilirubin AST ALT Alkaline Phosphatase Total Protein Albumin Urine Color Urine Clarity Urine pH Ur Specific [place] Urine Protein Urine Ketones Urine Blood Urine Nitrite Urine Bilirubin Urine Urobilinogen Ur Leukocyte Esterase Urine RBC Urine WBC Ur Epithelial Cells Urine Crystals Urine Bacteria Urine Mucus Ur Culture Indicated? Urine Glucose Assessment and Plan (1) Gross hematuria: Current visit: No Status: Acute We have already investigated his gross hematuria with a CT scan and cystoscopy. The source of his hematuria seems to be his prostate. We have started him on a 5 alpha reductase inhibitor. This type of medication has been known to decrease the vascularity of the prostate within a week or 2. It does take up to 6 months to decrease the total volume of the prostate If our conservative measures are not helpful, we always have the option of surg ical treatment with a vaporization of the prostate. As of this morning,his bladder irrigation and his hand irrigation are both clear. I will stop the CBI. If the urine remains clear,m we can give him a voiding trial later this morning.
[2018-11-17 07:07] LABS: Anion Gap 7.9 mmol/L (3-11); BUN 11 mg/dL (7-18); CO2 29.1 mmol/L (21.0-32.0); CREATININE 0.81 mg/dL (0.70-1.30); Calcium 8.6 mg/dL (8.5-10.1); Chloride 107 mmol/L (98-107); Glucose 111 mg/dL (70-100); Potassium 3.9 mmol/L (3.5-5.1); Sodium 144 mmol/L (136-145)
[2018-11-17 07:35] VITALS: BP 150/62; PULSE 70; RESP 18; TEMP 37; O2SAT 98
[2018-11-17] MEDS: Multivitamin TAB 1 TAB PO (08:27)
[2018-11-17] MEDS: Ascorbic Acid 500 MG TAB PO (08:27)
[2018-11-17] MEDS: Lisinopril 5 MG TAB PO (08:28)
[2018-11-17] MEDS: Folic Acid 1 MG TAB PO (08:28)
[2018-11-17] MEDS: Thiamine 100 MG TAB PO (08:28)
[2018-11-17] MEDS: Atorvastatin 20 MG TAB PO (08:29)
[2018-11-17] MEDS: Finasteride 5 MG TAB PO (08:29)
[2018-11-17] MEDS: Normal Saline Flush 10 ML SYR (08:31)
[2018-11-17] MEDS: Acetaminophen 325 MG TAB PO (10:02)
--- NOTE | 2018-11-17 10:53 | PDOC.CMIN ---
- If Service Date Differs Date of service: 11/17/18 Time of Service: 10:53 Care Management Initial Assess REASON FOR HOSPITALIZATION:: gross hematuria PAST MEDICAL HISTORY/PAST SURGICAL HISTORY:: Medical History: AVM LEFT COLON. Adenomatous colon polyp. BPH. Bee sting allergy. Dysthymia. Essential hypertension. HTN (hypertension). Hypercholesterolemia. Hyperlipidemia. Left inguinal hernia. Low back pain. Male erectile disorder. Orthostatic dizziness. Seborrheic keratosis. Surgical History: Hx of cystoscopy (Chronic). H/O inguinal hernia repair (Chronic). Colonoscopy - IV Sedation PREVIOUS FUNCTIONAL STATUS/SOCIAL/FAMILY SUPPORTS:: Srini lives in [place] in a single family home with his Masha and 2 grandsons ages 9 and 15. 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 He is independent with all activities and continues to drive. CURRENT FUNCTIONAL STATUS:: Srini was sitting up in bed when visited. He states he is feeling much better and that his cleary has been removed. If he is able to void on his own, he expects to be discharged later today. ADVANCE DIRECTIVES:: None on file at [facility] Has patient been provided with information about the portal?: Yes Did the patient sign up for the portal?: No CODE STATUS:: Full Code INSURANCE COVERAGE / FINANCIAL ISSUES:: [facility] CURRENT HOME/COMMUNITY SERVICES/EQUIPMENT:: none currently PRIMARY CARE PHYSICIAN:: Tony Jones MD POTENTIAL DISCHARGE NEEDS:: Follow up with Urology and PCP PATIENT/FAMILY EDUCATION NEEDS:: Discharge plan, limitations, follow up plan of care and Ask Me Three. ANTICIPATED BARRIERS TO DISCHARGE:: none TRANSPORTATION:: via private automobile with when ready PLAN:: Srini will be discharged home with no new services required when ready. He will follow up with his PCP and Urology and discharge plan of care.
[2018-11-17] MEDS: Normal Saline 1,000 ML 100 ML IV (11:09)
[2018-11-17 11:25] VITALS: BP 125/72; PULSE 67; RESP 18; TEMP 36.5; O2SAT 98
[2018-11-17 15:00] VITALS: BP 133/70; PULSE 65; RESP 16; TEMP 36.2; O2SAT 99
--- NOTE | 2018-11-17 15:21 | INITIAL_ITS ---
- If Service Date Differs Date of service: 11/17/18 Time of Service: 10:53 Care Management Initial Assess REASON FOR HOSPITALIZATION:: gross hematuria PAST MEDICAL HISTORY/PAST SURGICAL HISTORY:: Medical History: AVM LEFT COLON. Adenomatous colon polyp. BPH. Bee sting allergy. Dysthymia. Essential hypertension. HTN (hypertension). Hypercholesterolemia. Hyperlipidemia. Left inguinal hernia. Low back pain. Male erectile disorder. Orthostatic d izziness. Seborrheic keratosis. Surgical History: Hx of cystoscopy (Chronic). H/O inguinal hernia repair (Chronic). Colonoscopy - IV Sedation PREVIOUS FUNCTIONAL STATUS/SOCIAL/FAMILY SUPPORTS:: Srini lives in [place] in a single family home with his Masha and 2 grandsons ages 9 and 15. 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 He is independent with all activities and continues to drive. CURRENT FUNCTIONAL STATUS:: Srini was sitting up in bed when CM visited. He states he is feeling much better and that his cleary has been removed. If he is able to void on his own, he expects to be discharged later today. ADVANCE DIRECTIVES:: None on file at [facility] Has patient been provided with information about the portal?: Yes Did the patient sign up for the portal?: No CODE STATUS:: Full Code INSURANCE COVERAGE / FINANCIAL ISSUES:: [facility] CURRENT HOME/COMMUNITY SERVICES/EQUIPMENT:: none currently PRIMARY CARE PHYSICIAN:: Tony Jones MD POTENTIAL DISCHARGE NEEDS:: Follow up with Urology and PCP PATIENT/FAMILY EDUCATION NEEDS:: Discharge plan, limitations, follow up plan of care and Ask Me Three. ANTICIPATED BARRIERS TO DISCHARGE:: none TRANSPORTATION:: via private automobile with when ready PLAN:: Srini will be discharged home with no new services required when ready. He will follow up with his PCP and Urology and discharge plan of care.
--- NOTE | 2018-11-17 16:17 | W.PM.DS.N ---
Date of service: 11/17/18 Time of Service: 16:17 DS: Diagnosis Discharge Diagnosis (1) Gross hematuria: Status: Acute Discharge Plan Disposition Patient Disposition: HOME Condition: Good Discharge Details Reason For Visit: HEMATURIA Admit Date/Time: 11/16/18 17:42 Admit Provider: Roxi De La Fuente Attending Provider: Roxi De La Fuente Primary Care Provider: Tony Jones Hospital Course Hospital Course: Mr Bettencourt is a 78 year old male with past medical history significant for hematuria due to prostatic hypertrophy, having undergone cystoscopy with retrograde pyelogram on 11/10/[address] Stinson in workup thereof, as well as hypertension, hyperlipidemia, depression, who presented to the ED on 11/16/18 with hematuria, as well as dysuria, frequency, urgency and inability to empty his bladder. In the ED, he passed a large blood clot with relief of symptoms. A three-way urinary catheter was inserted and CBI initiated in the ED. He was admitted to the floor for continuous bladder irrigation. He remained on CBI overnight. He was seen by Urology this morning who noted that his urine was clear with the bladder irrigation running at a slow rate. He preformed hand irrigation and did not obtain any additional clots. He discontinued the CBI. His urine remained clear and the cleary catheter was discontinued. He was able to void without significant urinary retention. He initially had some small clots in his urine but they eventually cleared. His urine remained clear. His bladder scans showed 60-80s. His case was discussed with Dr. Stinson who felt the patient was safe for discharge. He was previously started on Finasteride and terazosin. If this regimen is not successful, urology will consider a vaporization of the prostate. He is discharged home on this regimen and he will follow up with Urology as an outpatient. He will follow up with his PCP as scheduled. Given the hematuria, he will be asked to hold his aspirin until his PCP clears him to restart it. Home Meds and New Rx's Prescriptions: Continued atorvastatin 20 mg tablet 20 mg PO DAILY RF: 0 lisinopril 5 mg tablet 5 mg PO DAILY RF: 0 multivitamin 1 EACH tablet 1 ea PO DAILY RF: 0 ascorbic acid (vitamin C) [Vitamin C] 500 MG tablet 500 mg PO DAILY RF: 0 finasteride 5 mg tablet 5 mg PO DAILY Qty: 90 RF: 4 terazosin 10 mg Capsule 10 mg PO DAILY RF: 0 Discontinued aspirin 81 MG tablet,delayed release (DR/EC) 81 mg PO HS RF: 0 Discharge Instructions Instructions: Benign Prostatic Hypertrophy (DC) Additional Instructions: Follow up with urology as scheduled. You should call Dr. Stinson's office to see if he wants you to be seen before January. Continue taking Finasteride and terazosin. Do not take aspirin until your PCP says it is safe to restart it. Follow up with your PCP as scheduled. Take care! Stand Alone Forms: Nursing Discharge Form Referrals: Alexi Stinson MD [ [facility] STAFF PHYSICIAN] - 02/23/19 8:30 am Tony Jones MD [Primary Care Provider] - 12/01/18 2:45 pm Activity:: Activity as Tolerated Equipment/Supplies:: No Equipment Needed Diet:: As Tolerated Discharge Orders Discharge Orders: Discharge Order (Routine); Ordered 11/17/18 Ordered By: Ketty Pearl Exam Narrative Exam Narrative: General: Pleasant middle-aged male, appears comfortable in bed, A&Ox3, not currently tremulous. Neurological: A&Ox3, no focal deficits Psychiatric: affect somewhat flat Skin: no suspicious lesions. HEENT: Atraumatic, normocephalic, EOMI, moist mucous membranes, clear oropharynx. Neck: supple, no JVD Cardiovascular: heart sounds regular, no murmur appreciated. Lungs: respirations even and unlabored. Lung sounds clear bilaterally. Gastrointestinal: normal bowel sounds, abdomen is soft, nontender on palpation, nondistended Extremities: no cyanosis or edema, pedal pulses palpable bilaterally. DS: Data Vitals/I&O Vitals and I&O: Vital Signs Temperature 36.2 C L 11/17/18 15:00 Temperature Source Tympanic 11/17/18 15:00 Pulse 65 11/17/18 15:00 Pulse Rhythm Regular 11/17/18 08:33 Respiratory Rate 16 11/17/18 15:00 Respiratory Effort Non-Labored 11/17/18 08:33 Respiratory Depth Normal 11/17/18 08:33 Respiratory Pattern Normal 11/17/18 08:33 Blood Pressure 133/70 11/17/18 15:00 Blood Pressure Position Sitting 11/16/18 11:18 Pulse Oximetry 99 11/17/18 15:00 Oxygen Delivery Method Room Air 11/17/18 15:00 Oxygen Flow Rate 0 11/17/18 15:00 Pain Level 0 11/17/18 15:00 Comment 11/17/18 11:25 Intake & Output 11/16/18 11/17/18 11/17/18 23:59 11:59 23:59 Intake Total 440 / 440 970 / 1713.333 743.333 / 1713.333 Output Total 1525 / 1525 Balance 440 / 440 970 / 188.333 -781.667 / 188.333 Weight 65.771 kg 62.9 kg Intake: IV 493.333 / 493.333 Oral 440 / 440 970 / 1220 250 / 1220 Output: Urine 1525 / 1525 Other: Urine Color Clifford Clifford Pale [place] Urine Appearance Hematuria Clear Clear Sediment Comment pt went on commode and flow stopped. hand irrigation done , no clots noted , flow in progress pt was leaking around catheter, it was re advanced, flow in progress no leaking noted scanned for 62cc, 85cc and 86cc Voiding Methods Toilet Labs on day of discharge: Labs from last 24 hours 11/17/18 11/17/18 11/16/18 06:35 06:35 17:40 WBC 6.10 6.92 RBC 3.73 L 3.81 L Hgb 12.7 L 12.8 L Hct 37.1 L 37.4 L MCV 99.5 H 98.2 H MCH 34.0 H 33.6 H MCHC 34.2 34.2 RDW 13.5 13.1 Plt Count 139 150 MPV 9.5 9.5 Immature Gran % 0.1 Neutrophils % 75.7 Lymphocytes % 13.2 Monocytes % 9.8 Eosinophils % 0.9 Basophils % 0.3 Absolute Neutrophils 5.24 Absolute Lymphocytes 0.91 L Absolute Monocytes 0.68 Absolute Eosinophils 0.06 Absolute Basophils 0.02 Sodium 144 Potassium 3.9 Chloride 107 Carbon Dioxide 29.1 Anion Gap 7.9 BUN 11 Creatinine 0.81 Estimated GFR/1.73 m2 >= 60.00 Glucose 111 H Calcium 8.6 Magnesium 2.0 Total Bilirubin AST ALT Alkaline Phosphatase Total Protein Albumin 11/16/18 17:40 WBC RBC Hgb Hct MCV MCH MCHC RDW Plt Count MPV Immature Gran % Neutrophils % Lymphocytes % Monocytes % Eosinophils % Basophils % Absolute Neutrophils Absolute Lymphocytes Absolute Monocytes Absolute Eosinophils Absolute Basophils Sodium 145 Potassium 4.0 Chloride 108 H Carbon Dioxide 28.4 Anion Gap 8.6 BUN 12 Creatinine 0.81 Estimated GFR/1.73 m2 >= 60.00 Glucose 106 H Calcium 8.9 Magnesium Total Bilirubin 0.7 AST 22 ALT 28 Alkaline Phosphatase 66 Total Protein 6.8 Albumin 3.7 11/16/18 20:17 Blood Blood Culture - Pending 11/16/18 20:17 Blood Blood Culture - Pending Preliminary micro results at discharge 11/16/18 20:17 Blood Culture - Pending Blood 11/16/18 20:17 Blood Culture - Pending Blood PENDING SALE TO [facility] Medical History AVM LEFT COLON Adenomatous colon polyp BPH Bee sting allergy Dysthymia Essential hypertension HTN (hypertension) Hypercholesterolemia Hyperlipidemia Left inguinal hernia Low back pain Male erectile disorder Orthostatic dizziness Seborrheic keratosis Surgical History Hx of cystoscopy (Chronic) H/O inguinal hernia repair (Chronic) Colonoscopy - IV Sedation Family History Father Personal history of malignant neoplasm Prostate cancer Uncle Personal history of malignant neoplasm Prostate cancer Social History Smoking/Tobacco Use Status: Former Tobacco Use Alcohol Intake: current Alcohol Intake frequency: 0-2 drinks per day Alcohol type: beer Drug use: Never Substance use type: does not use Do you feel safe at home: Yes Do you feel safe in your relationship?: Yes
== END 2018-11-17 16:58 | disposition home or self-care (01) | DRG 726 ==
LOC: ER 18:11 → MS 18:33
PROVIDERS: Nurse Practitioner Family; Admitting Provider Internal Medicine; Emergency Provider Student in an Organized Health Care Education/Training Program; PCP Internal Medicine; Visit Provider Internal Medicine
DX: R31.0 Gross hematuria (principal); N40.1 Benign prostatic hyperplasia with lower urinary tract symptoms; R35.0 Frequency of micturition; R33.8 Other retention of urine; R39.15 Urgency of urination; R30.0 Dysuria; I10 Essential (primary) hypertension; E78.5 Hyperlipidemia, unspecified
CPT/HCPCS: 36410; 36415; 51702; 80048; 80053; 85027; 87040; 99222; 99223; 99239; 99252; 99285; 81003; 81015; 83735; 85025; 99284

== ENCOUNTER → 2018-11-18 11:03 | Outpatient (BNVA) | payer OTHER, SELFPAY | PROVIDERS: PCP Internal Medicine; Visit Provider Urology | DX: R31.0 Gross hematuria (principal); Z46.6 Encounter for fitting and adjustment of urinary device; Z48.816 Encounter for surgical aftercare following surgery on the genitourinary system; I10 Essential (primary) hypertension | CPT/HCPCS: 51703; 99213 ==

== ENCOUNTER → 2018-11-20 08:42 | Outpatient (BNVA) | payer OTHER, SELFPAY | PROVIDERS: PCP Internal Medicine; Visit Provider Urology | DX: R31.0 Gross hematuria (principal); Z46.6 Encounter for fitting and adjustment of urinary device | CPT/HCPCS: 99211; 99212 ==

== ENCOUNTER → 2019-02-13 11:11 | Outpatient (BNVA) | payer OTHER, SELFPAY | PROVIDERS: PCP Internal Medicine; Visit Provider Urology | DX: N40.0 Benign prostatic hyperplasia without lower urinary tract symptoms (principal) | CPT/HCPCS: 99213 ==

== ENCOUNTER 2019-04-19 15:03 | Emergency (ER) | payer OTHER, SELFPAY ==
[2019-04-19 14:59] VITALS: BP 133/64; PULSE 72; RESP 16; TEMP 36.2; O2SAT 98
[2019-04-19 15:53] LABS: Abs Immature Grans 0.01 k/cumm (0.0-0.09); Absolute Basophil Count 0.01 k/cumm (0.0-0.2); Absolute Eosinophil Count 0.03 k/cumm (0.0-0.7); Absolute Monocyte Count 0.68 k/cumm (0.11-0.7); Absolute Neutrophil Count 5.25 k/cumm (1.2-6.7); Basophils % 0.1; Eosinophils % 0.4; HCT 37.8 % (40.0-50.0); HGB 12.9 g/dL (13.5-17.5); Immature Grans % 0.1; Lymphocytes % 10.5; Mean Corp. HGB Concentration 34.1 g/dL (32.0-36.0); Mean Corpuscular Hemoglobin 33.1 pg (27.0-33.0); Mean Corpuscular Volume 96.9 fL (80-95); Mean Platelet Volume 9.8 fL (8.0-11.0); Monocytes % 10.2; Neutrophils % 78.7; Platelet Count 146 x1000/uL (130-400); RBC Distribution Width 13.6 % (11.8-14.1); White Blood Cell Count 6.68 k/cumm (4.4-10.8)
--- NOTE | 2019-04-19 15:54 | DI.RAD_ITS ---
EXAM: XR CHEST 2V PA LATERAL INDICATION: dizziness, r/o acute disease. COMPARISON: PORTABLE CHEST ONE VIEW from 05/29/2017 TECHNIQUE: 2D digital imaging was performed. FINDINGS: Heart size is normal. The aorta appears normal in diameter. Leads overlie the upper chest. Lungs a ppear clear. No infiltrate, effusion or pulmonary edema is seen. IMPRESSION: No acute abnormality.
[2019-04-19 16:00] LABS: Bilirubin Negative (Negative); Blood Negative (Negative); Clarity Clear (Clear); Glucose Negative (Negative); Ketones Negative (Negative); Leukocyte Esterase Negative (Negative); Nitrite Negative (Negative); Urobilinogen 0.2 EU/dL (Up TO 0.2)
[2019-04-19 16:08] LABS: ALT 23 U/L (16-63); AST 19 U/L (15-37); Albumin 3.7 g/dL (3.4-5.0); Alkaline Phosphatase 69 U/L (46-116); Anion Gap 7.9 mmol/L (3-11); BUN 10 mg/dL (7-18); Bilirubin, Total 0.3 mg/dL (0.2-1.0); CO2 29.1 mmol/L (21.0-32.0); CREATININE 0.88 mg/dL (0.70-1.30); Calcium 8.5 mg/dL (8.5-10.1); Chloride 106 mmol/L (98-107); Glucose 114 mg/dL (74-106); Potassium 3.6 mmol/L (3.5-5.1); Sodium 143 mmol/L (136-145); Total Protein 6.5 g/dL (6.4-8.2)
--- NOTE | 2019-04-19 16:16 | ED.GENADUL_ITS ---
Discharge Plan Disposition Patient Disposition: HOME Condition: Stable Discharge Details Chief Complaint: Dizzy/Sync Clinical Impression: Dizziness Primary Care Provider: Tony Jones ED Provider: Ramy Murrieta Home Meds and New Rx's Prescriptions: Continued atorvastatin 20 mg tablet 20 mg PO DAILY RF: 0 lisinopril 5 mg tablet 5 mg PO DAILY RF: 0 multivitamin 1 EACH tablet 1 ea PO DAILY RF: 0 ascorbic acid (vitamin C) [Vitamin C] 500 MG tablet 500 mg PO DAILY RF: 0 finasteride 5 mg tablet 5 mg PO DAILY Qty: 90 RF: 4 terazosin 10 mg Capsule 10 mg PO DAILY RF: 0 Discharge Instructions Instructions: Dizziness (ED) Additional Instructions: your lab work, ekg and chest xray did not show any concerning findings this was likely orthostasis follow up with your primary care provider within 1 week and return to the emergency department if you feel more ill, have chest pain or difficulty breathing Medical Decision Making 79 yo male with hx of htn, hld, who comes in after he had about 30 seconds of feeling lightheaded when standing earlier. Currently denies any symptoms. Denies any chest pain, sob, fevers, abdominal pain. Has no focal deficits on exam and is hd stable. Suspect orthostsis, xray and lab work ordered prior to my exam. Will monitor and eval for electrolyte abnormalities and anemia labs unremarkableas is xray and he has been ambulating with stable gait. Suspect orthostasis, will d/c home and advised f/u with pcp and return precautions given Differential Diagnosis Differential Diagnosis: orthostasis, anemia, hyponatremia Imaging Data Radiologic Study: Attestation: I personally reviewed and interpreted this imaging study as follows: Imaging: X-Ray Radiologist's impression: no acute findings Lab Data Lab results reviewed: Yes I reviewed the patient's lab results. ECG Data Attestation: I personally reviewed and interpreted this ECG (s) as follows: Prior ECG tracings: not available for review Interpretation: sinus rhtyhm, rate of 70, pr 146, no acute st t wave ischemic findings HPI General Mode of arrival: EMS . Date/Time Provider Initiated Documentation: 04/19/19 15:11 . Limitations to Documentation: no limitations . Information obtained by: patient . History of Present Illness 79 year old M presents to the emergency department with the chief complaint of dizzy, described as moderate, Patient reports no radiation. and it has been now resolved. No relieving factors improve symptom(s), No exacerbating factors reported . Related Data Home Medications Medication Instructions Recorded Confirmed ascorbic acid (vitamin C) [Vitamin 500 mg PO DAILY 11/19/12 11/16/18 C] multivitamin 1 ea PO DAILY 11/19/12 11/16/18 atorvastatin 20 mg tablet 20 mg PO DAILY 10/28/18 11/16/18 lisinopril 5 mg tablet 5 mg PO DAILY 10/28/18 11/16/18 finasteride 5 mg PO DAILY #90 tab 11/10/18 11/16/18 terazosin 10 mg PO DAILY 11/16/18 11/16/18 Previous Rx's Medication Instructions Recorded finasteride 5 mg PO DAILY #90 tab 11/10/18 Allergies Allergy/AdvReac Type Severity Reaction Status Date / Time ciprofloxacin [From Cipro] AdvReac Intermediate Skin Rash Verified 04/19/19 15:06 BEE STINGS Allergy Uncoded 04/19/19 15:06 General Stated Complaint: Dizzy/Sync RAY: 4 Review of Systems All systems reviewed & are unremarkable except as noted in HPI and below Constitutional Constitutional: Denies chills, Denies fever(s) and Denies weakness ENT Ears, Nose, Mouth, and Throat: Denies change in voice Cardiovascular Cardiovascular: Denies chest pain and Denies dyspnea Respiratory Respiratory: Denies cough and Denies dyspnea Gastrointestinal Gastrointestinal: Denies abdominal pain, Denies nausea and Denies vomiting Musculoskeletal Musculoskeletal: Denies joint swelling Neurologic Neurologic: Denies weakness [facility] Social History Smoking/Tobacco Use Status: Former Tobacco Use Alcohol Intake: current Alcohol Intake frequency: 0-2 drinks per day Alcohol type: beer Drug use: Never Substance use type: does not use Do you feel safe at home: Yes Do you feel safe in your relationship?: Yes Exam Const General: no acute distress Orientation: alert HENMT Head: normal to inspection Ears: external ears normal General nose exam: external nose normal Mouth: moist mucous membranes Eyes General: appearance normal, both eyes and all related structures Neck Neck: normal visual inspection Resp Effort & Inspection: normal respiratory effort and able to speak in complete sentences Cardio Rate: regular rate Skin General skin exam: no rashes or lesions noted Neuro General: alert and oriented x3 Extrem General: normal to inspection Psych Mental Status: mental status grossly normal Course Vital Signs Vital signs: Vital Signs Temperature 36.2 C L 04/19/19 14:59 Pulse 72 04/19/19 14:59 Respiratory Rate 16 04/19/19 14:59 Blood Pressure 133/64 04/19/19 14:59 Pulse Oximetry 98 04/19/19 14:59 Temperature 36.2 C L 04/19/19 14:59 Temperature Source Tympanic 04/19/19 14:59 Pulse 72 04/19/19 14:59 Respiratory Rate 16 04/19/19 14:59 Respiratory Effort Non-Labored 04/19/19 15:12 Respiratory Depth Normal 04/19/19 15:12 Respiratory Pattern Normal 04/19/19 15:12 Blood Pressure 133/64 04/19/19 14:59 Blood Pressure Position Sitting 04/19/19 14:59 Pulse Oximetry 98 04/19/19 14:59 Oxygen Delivery Method Room Air 04/19/19 14:59 Oxygen Flow Rate 0 04/19/19 14:59 Pain Level 0 04/19/19 14:59 Lab/Test Results Lab/Test Results: Laboratory Tests Range/Units 04/19/19 04/19/19 15:40 15:45 WBC (4.4-10.8) k/cumm 6.68 RBC (4.50-6.00) m/cumm 3.90 L Hgb (13.5-17.5) g/dL 12.9 L Hct (40.0-50.0) % 37.8 L MCV (80-95) fL 96.9 H MCH (27.0-33.0) pg 33.1 H MCHC (32.0-36.0) g/dL 34.1 RDW (11.8-14.1) % 13.6 Plt Count (130-400) x1000/uL 146 MPV (8.0-11.0) fL 9.8 Immature Gran % 0.1 Neutrophils % 78.7 Lymphocytes % 10.5 Monocytes % 10.2 Eosinophils % 0.4 Basophils % 0.1 Absolute Neutrophils (1.2-6.7) k/cumm 5.25 Absolute Lymphocytes (1.2-3.4) k/cumm 0.70 L Absolute Monocytes (0.11-0.7) k/cumm 0.68 Absolute Eosinophils (0.0-0.7) k/cumm 0.03 Absolute Basophils (0.0-0.2) k/cumm 0.01 Urine Color (Yellow) Yellow Urine Clarity (Clear) Clear Urine pH (5-8) 6.0 Ur Specific [place] (1.005-1.025) 1.010 Urine Protein (Negative) mg/dL Negative Urine Ketones (Negative) mg/dL Negative Urine Blood (Negative) Negative Urine Nitrite (Negative) Negative Urine Bilirubin (Negative) Negative Urine Urobilinogen (Up TO 0.2) EU/dL 0.2 Ur Leukocyte Esterase (Negative) Negative Urine Glucose (Negative) mg/dL Negative
[2019-04-19 16:17] LABS: Troponin I < 0.05 ng/Ml (<0.06)
--- NOTE | 2019-04-19 16:20 | DI.VRAD_ITS ---
PROCEDURE INFORMATION: Exam: XR Chest, 2 Views Exam date and time: 04/19/2019 3:52 PM Age: 79 years old Clinical history: Other: Dizzy; Patient HX: Dizziness, R/O acute disease TECHNIQUE: Imaging protocol: XR of the chest Views: 2 views. COMPARISON: CR PORTABLE CHEST ONE VIEW 05/29/2017 10:47 AM FINDINGS: Lungs: Unremarkable. No consolidation. Pleural space: Unremarkable. No pleural effusion. No pneumothorax. Heart/Mediastinum: Unremarkable. No cardiomegaly. Vasculature: Mild atherosclerosis of the thoracic aorta. Bones/joints: Mild scoliosis of the thoracic spine. IMPRESSION: No acute cardiopulmonary process. Dictated and Authenticated by: Ramy Jose MD. Ordering:APRIL Mchugh MD
[2019-04-19 16:49] VITALS: BP 130/74; PULSE 75; RESP 18; O2SAT 97
== END 2019-04-19 17:00 | disposition home or self-care (01) ==
PROVIDERS: Physician Assistant; Emergency Provider Emergency Medicine; PCP Internal Medicine
DX: R42 Dizziness and giddiness (principal); I10 Essential (primary) hypertension
CPT/HCPCS: 36415; 80053; 93005; 99285; 71046; 81003; 83735; 84484; 85025; 93010; 99284

== ENCOUNTER → 2019-09-29 12:52 | Outpatient (BNVA) | payer OTHER, SELFPAY | PROVIDERS: PCP Internal Medicine; Referring Provider Internal Medicine; Visit Provider Urology | DX: N40.0 Benign prostatic hyperplasia without lower urinary tract symptoms (principal); R31.0 Gross hematuria | CPT/HCPCS: 99213; 99442 ==

== ENCOUNTER → 2020-05-26 14:15 | Outpatient (BNVA) | payer OTHER, SELFPAY | PROVIDERS: PCP Internal Medicine; Referring Provider Internal Medicine; Visit Provider Urology | DX: R31.29 Other microscopic hematuria (principal); T50.995A Adverse effect of other drugs, medicaments and biological substances, initial encounter; N62 Hypertrophy of breast | CPT/HCPCS: 81003; 99213 ==

== ENCOUNTER 2020-08-15 13:58 | Outpatient (REF) | payer OTHER, SELFPAY ==
[2020-08-15 14:17] LABS: Anion Gap 11.5 mmol/L (3-11); BUN 11 mg/dL (7-18); CO2 25.5 mmol/L (21.0-32.0); CREATININE 0.8 mg/dL (0.70-1.30); Calcium 8.9 mg/dL (8.5-10.1); Calculated LDL 44 mg/dL (<100); Chloride 107 mmol/L (98-107); Cholesterol 122 mg/dL (<200); Glucose 102 mg/dL (74-106); HDL Cholesterol 67 mg/dL (40-60); Potassium 3.9 mmol/L (3.5-5.1); Sodium 144 mmol/L (136-145); Triglyceride 59 mg/dL (<150)
[2020-08-15 21:52] LABS: PSA, Screening 1.5 ng/mL (0.0-6.5)
== END 2020-08-15 13:59 | disposition home or self-care (01) ==
LOC: NCHCN 13:58
PROVIDERS: PCP Internal Medicine; Visit Provider Internal Medicine
DX: E78.5 Hyperlipidemia, unspecified (principal); I10 Essential (primary) hypertension; N40.0 Benign prostatic hyperplasia without lower urinary tract symptoms; Z12.5 Encounter for screening for malignant neoplasm of prostate
CPT/HCPCS: 80048; 80061; 84153

== ENCOUNTER 2020-08-26 03:13 | Outpatient (CLI) | payer OTHER, SELFPAY ==
--- NOTE | 2020-08-26 14:19 | DI.MAMMO_ITS ---
EXAM: MG MAMMO DIAGNOSTIC BI CLINICAL HISTORY: MALE GYNECOMASTIA,N62 TECHNIQUE: Mammograms were interpreted according to the usual protocol including computer analysis w Pivto CAD system, tomosynthesis and C-view imaging. COMPARISON: FINDINGS: Today's mammogram was obtained to evaluate question palpable abnormality of the right breast. Patien t is reportedly on hormonal therapy. There is an area of vaguely masslike asymmetric density of the central portion of the right breast, t his has mammographic characteristics consistent with gynecomastia, however mass is not excluded. Lef t breast is unremarkable. No clumped microcalcification of either breast. IMPRESSION: Asymmetric right breast radiodensity, possibly gynecomastia. Mass not excluded, breast ultrasound re quested for further evaluation, unfortunately we were unable to perform the breast ultrasound today a nd this examination will need to be scheduled at the patient's convenience. BI-RADS Category 0 - Assessment Incomplete: Need additional imaging evaluation Breast Density - Category B - Scattered areas of fibroglandular density
== END 2020-08-26 03:33 ==
PROVIDERS: PCP Internal Medicine; Visit Provider Internal Medicine
DX: R92.8 Other abnormal and inconclusive findings on diagnostic imaging of breast (principal)
CPT/HCPCS: 77062; 77066; G0279

== ENCOUNTER → 2020-11-29 09:28 | Outpatient (BNVA) | payer OTHER, SELFPAY | PROVIDERS: PCP Internal Medicine; Referring Provider Internal Medicine; Visit Provider Urology | DX: N40.0 Benign prostatic hyperplasia without lower urinary tract symptoms (principal); Z80.42 Family history of malignant neoplasm of prostate; Z87.448 Personal history of other diseases of urinary system | CPT/HCPCS: 81003; 99213 ==

== ENCOUNTER 2021-03-31 12:35 | Outpatient (REF) | payer MEDICARE, SELFPAY ==
[2021-04-01 12:00] LABS: COVID-19 RT-PCR UVMMC Result Negative (Negative)
== END 2021-03-31 12:36 | disposition home or self-care (01) ==
LOC: NCHCN 12:35
PROVIDERS: PCP Internal Medicine; Visit Provider Family Medicine
DX: Z20.822 Contact with and (suspected) exposure to COVID-19 (principal); J06.9 Acute upper respiratory infection, unspecified
CPT/HCPCS: U0003; U0005

== ENCOUNTER 2021-08-21 11:04 | Outpatient (REF) | payer MEDICARE, SELFPAY ==
[2021-08-21 17:10] LABS: Anion Gap 6.4 mmol/L (3-11); BUN 15 mg/dL (7-18); CO2 29.6 mmol/L (21.0-32.0); CREATININE 0.9 mg/dL (0.70-1.30); Calcium 9.1 mg/dL (8.5-10.1); Chloride 107 mmol/L (98-107); Glucose 103 mg/dL (74-106); Potassium 4.1 mmol/L (3.5-5.1); Sodium 143 mmol/L (136-145)
== END 2021-08-21 11:05 | disposition home or self-care (01) ==
LOC: NCHCN 11:04
PROVIDERS: PCP Internal Medicine; Visit Provider Family Medicine
DX: I10 Essential (primary) hypertension (principal)
CPT/HCPCS: 80048

== ENCOUNTER → 2021-08-29 09:44 | Outpatient (BNVA) | payer MEDICARE, SELFPAY | PROVIDERS: PCP Internal Medicine; Visit Provider Urology | DX: N40.1 Benign prostatic hyperplasia with lower urinary tract symptoms (principal); R35.1 Nocturia; Z80.42 Family history of malignant neoplasm of prostate | CPT/HCPCS: 99214 ==

== ENCOUNTER 2021-09-04 02:42 | Outpatient (CLI) | payer MEDICARE, SELFPAY ==
[2021-09-04 22:36] LABS: PSA, Diagnostic 1.6 ng/mL (<=6.5)
== END 2021-09-04 02:43 | disposition home or self-care (01) ==
LOC: LBO 02:42
PROVIDERS: PCP Internal Medicine; Visit Provider Urology
DX: N40.0 Benign prostatic hyperplasia without lower urinary tract symptoms (principal); R31.0 Gross hematuria; Z80.42 Family history of malignant neoplasm of prostate
CPT/HCPCS: 36415; 84153

== ENCOUNTER 2022-08-29 03:28 | Outpatient (CLI) | payer MEDICARE, SELFPAY ==
[2022-08-29 22:47] LABS: PSA, Diagnostic 1.9 ng/mL (<=6.5)
== END 2022-08-29 03:29 | disposition home or self-care (01) ==
LOC: LBO 03:29
PROVIDERS: PCP Internal Medicine; Visit Provider Urology
DX: N40.0 Benign prostatic hyperplasia without lower urinary tract symptoms (principal); Z80.42 Family history of malignant neoplasm of prostate
CPT/HCPCS: 36415; 84153

== ENCOUNTER → 2022-09-06 09:13 | Outpatient (BNVA) | payer MEDICARE, SELFPAY | PROVIDERS: PCP Internal Medicine; Visit Provider Urology | DX: N40.0 Benign prostatic hyperplasia without lower urinary tract symptoms (principal); Z80.42 Family history of malignant neoplasm of prostate | CPT/HCPCS: 99213 ==

== ENCOUNTER 2023-02-18 13:30 | Outpatient (REF) | payer MEDICARE, SELFPAY ==
[2023-02-18 15:43] LABS: HGB 13.3 g/dL (13.5-17.5); MCH 33.6 pg (27.0-33.0); MCHC 34.1 % (32.0-36.0); MCV 99 fL (80-95); MPV 10.7 fL (8.0-11.0); Platelet Count 142 10^3/uL (130-400); RBC 3.96 10^6/uL (4.36-5.78); RDW 12.9 % (11.8-14.1); RDW-SD 46.7 fL; WBC 4.36 10^3/uL (4.4-10.8)
[2023-02-18 16:07] LABS: ALT 28 U/L (16-63); AST 22 U/L (15-37); Albumin 3.8 g/dL (3.4-5.0); Alkaline Phosphatase 77 U/L (46-116); BUN 13 mg/dL (7-18); Bilirubin, Total 0.4 mg/dL (0.2-1.0); CREATININE 0.8 mg/dL (0.70-1.30); Calcium 9.2 mg/dL (8.5-10.1); Calculated LDL 50 mg/dL (<100); Chloride 106 mmol/L (98-107); Cholesterol 118 mg/dL (<200); Estimated GFR 88.91 (mL/min/1.73m2); Glucose 98 mg/dL (74-106); HDL Cholesterol 62 mg/dL (40-60); Potassium 4.3 mmol/L (3.5-5.1); Sodium 143 mmol/L (136-145); Total Protein 6.4 g/dL (6.4-8.2); Triglyceride 30 mg/dL (<150)
== END 2023-02-18 13:31 | disposition home or self-care (01) ==
LOC: NCHCN 13:30
PROVIDERS: PCP Internal Medicine; Visit Provider Family Medicine
DX: I10 Essential (primary) hypertension (principal); E78.5 Hyperlipidemia, unspecified; N40.0 Benign prostatic hyperplasia without lower urinary tract symptoms
CPT/HCPCS: 80053; 80061; 85027

== ENCOUNTER 2023-08-26 10:26 | Outpatient (CLI) | payer MEDICARE, SELFPAY ==
[2023-08-26 18:55] LABS: PSA, Diagnostic 1.9 ng/mL (<=6.5)
== END 2023-08-26 10:27 | disposition home or self-care (01) ==
LOC: LBO 10:26
PROVIDERS: PCP Internal Medicine; Visit Provider Urology
DX: N40.0 Benign prostatic hyperplasia without lower urinary tract symptoms (principal); Z80.42 Family history of malignant neoplasm of prostate
CPT/HCPCS: 36415; 84153

== ENCOUNTER → 2023-09-16 13:41 | Outpatient (BNVA) | payer MEDICARE, SELFPAY | PROVIDERS: PCP Internal Medicine; Visit Provider Urology | DX: N40.1 Benign prostatic hyperplasia with lower urinary tract symptoms (principal); R35.1 Nocturia; Z80.42 Family history of malignant neoplasm of prostate | CPT/HCPCS: 99213 ==

== ENCOUNTER 2024-02-20 20:13 | Outpatient (REF) | payer MEDICARE, SELFPAY ==
[2024-02-20 21:13] LABS: HCT 40.3 % (40.0-50.0); HGB 13.4 g/dL (13.5-17.5); MCH 33.1 pg (27.0-33.0); MCHC 33.3 % (32.0-36.0); MCV 100 fL (80-95); Platelet Count 152 10^3/uL (130-400); RBC 4.05 10^6/uL (4.36-5.78); RDW 13.7 % (11.8-14.1); WBC 4.29 10^3/uL (4.4-10.8)
[2024-02-20 21:28] LABS: ALT 29 U/L (16-63); AST 23 U/L (15-37); Albumin 4.1 g/dL (3.4-5.0); Alkaline Phosphatase 81 U/L (46-116); Anion Gap 5.1 mmol/L (3-11); BUN 11 mg/dL (7-18); Bilirubin, Total 0.57 mg/dL (0.2-1.0); CO2 29.9 mmol/L (21.0-32.0); CREATININE 0.8 mg/dL (0.70-1.30); Calcium 9.3 mg/dL (8.5-10.1); Calculated LDL 58 mg/dL (<100); Chloride 108 mmol/L (98-107); Cholesterol 138 mg/dL (<200); Estimated GFR 88.36 (mL/min/1.73m2); Glucose 95 mg/dL (74-106); HDL Cholesterol 72 mg/dL (40-60); Potassium 4.8 mmol/L (3.5-5.1); Sodium 143 mmol/L (136-145); Total Protein 6.7 g/dL (6.4-8.2); Triglyceride 40 mg/dL (<150)
== END 2024-02-20 20:14 | disposition home or self-care (01) ==
LOC: NCHCN 20:13
PROVIDERS: PCP Family Medicine; Visit Provider Family Medicine
DX: I10 Essential (primary) hypertension (principal)
CPT/HCPCS: 80053; 80061; 85027

== ENCOUNTER 2024-05-01 06:44 | Day surgery (SDC) | payer MEDICARE, SELFPAY ==
[2024-05-01 07:15] VITALS: BP 139/67; PULSE 65; RESP 18; TEMP 36.4; O2SAT 99
[2024-05-01] MEDS: Tropicam./Phenyleph. (1/2.5%) 5 ML BTL OD ×3 (07:25→07:37)
--- NOTE | 2024-05-01 08:25 | W.ANESPRE ---
General Info Date of Service Date Performed: 05/01/24 Height: 5 ft 8 in Weight: 62.2 kg Body Mass Index (BMI): 20.8 Surgical Procedure: Operation Date: 05/01/24 09:40 Proposed Procedure Side Surgeon p Cataract Extraction with IOL Implant Right Frederick Neely MD Meds Allergies and Home Medications Allergies Allergy/AdvReac Type Severity Reaction Status Date / Time ciprofloxacin (From Cipro) AdvReac Intermediate Skin Rash Verified 05/01/24 07:28 BEE STINGS Allergy Anaphylaxis Uncoded 05/01/24 07:28 Home Medication ?Medication ?Instructions ?Recorded ascorbic acid (vitamin C) 500 mg 500 mg PO DAILY 11/19/12 tablet (Vitamin C) multivitamin 1 ea PO DAILY 11/19/12 lisinopril 5 mg tablet 5 mg PO DAILY 10/28/18 terazosin 10 mg capsule 5 mg PO DAILY 08/29/21 atorvastatin 10 mg tablet 10 mg PO QPM 04/29/24 doxazosin 4 mg tablet (Cardura) 4 mg PO QHS 04/29/24 latanoprost 0.005 % eye drops 1 drp ophthalmic (eye) QPM 04/29/24 Current Visit Medications: Current Medications Generic Name Dose Route Start Last Admin Trade Name Freq PRN Reason Stop Dose Admin Acetaminophen 1,000 mg 05/01/24 06:00 Acetaminophen 500 Mg Tab PO 05/31/24 05:59 Q4H PRN PRN Balanced Salt Solution 500 ml 05/01/24 06:00 Balanced Salt Soln.-Plus 500 Ml Bag OP 05/31/24 05:59 DIRECTED YANIQUE Miscellaneous Medication 0 ml 05/01/24 06:00 Prednisolone 1%, Moxifloxacin 0.5%, Bromfenac 0.09% 5.6ml Btl OD 05/31/24 05:59 DIRECTED YANIQUE Miscellaneous Medication 0 ml 05/01/24 06:00 05/01/24 07:37 Tropicam./Phenyleph. (1/2.5%) 5 Ml Btl OD 05/31/24 05:59 1 drp DIRECTED YANIQUE Administration Tetracaine HCl 0 ml 05/01/24 06:00 Tetracaine 0.5% 4 Ml Btl OD 05/31/24 05:59 DIRECTED YANIQUE PFSH Active Problems Active Problems: Problem Status Onset Code Nuclear age-related cataract, right eye Acute H25.11 DVT prophylaxis Acute Z29.9 Discharge planning issues Acute Z02.9 Hyperlipidemia Acute E78.5 Hypertension Chronic I10 Coarse tremors Acute G25.2 Gross hematuria Acute R31.0 Enlarged prostate Chronic N40.0 Family history of prostate cancer Chronic Z80.42 Medical History Medical History HTN (hypertension) Adenomatous colon polyp Orthostatic dizziness Left inguinal hernia Bee sting allergy Hyperlipidemia Hypercholesterolemia Dysthymia Seborrheic keratosis Low back pain Male erectile disorder Essential hypertension BPH AVM LEFT COLON Surgical History Surgical History Hx of cystoscopy H/O inguinal hernia repair Colonoscopy - IV Sedation [facility]-09/25/07 Tobacco Smoking/Tobacco Use Status: Former Tobacco Use Alcohol Alcohol Intake: former Substance Use Substance use: Never Substance use type: does not use Vital Signs and Lab Results Vital Signs Most Recent Vital Signs in EMR: Most Recent Vital Signs Temp Pulse Resp BP Pulse Ox 36.4 C L 65 18 139/67 99 05/01/24 07:15 05/01/24 07:15 05/01/24 07:15 05/01/24 07:15 05/01/24 07:15 Lab Results Blood Type / Crossmatch: No Data to Display Complete Blood Count: No Data to Display Complete Metabolic Panel: No Data to Display Liver Function Panel: No Data to Display Coagulation Panel: No Data to Display Cardiac Panel: No Data to Display Arterial Blood Gas: No Data to Display Venous Blood Gas: No Data to Display Pancreas Panel: No Data to Display Thyroid Panel: No Data to Display Infectious Disease: No Data to Display Blood Cultures: No Data to Display Toxicology Panel: No Data to Display Anesthesia Assessment and Plan Anesthesia History Personal History: No History of Anesthesia Complications Family History: No Family History of Anesthesia Complications Exercise Tolerance Exercise Tolerance: Metabolic Equivalents>4 Pertinent Negatives Pertinent Negatives: No Symptoms of GERD and No Major Pulmonary Symptoms or Complaints Cardiac & Pulmonary Exam Cardiac Exam: Normal S1/S2 Heart Sounds Pulmonary Exam: Clear Bilateral Breath Sounds Implantable Cardiac Device Does patient have a Pacemaker or an ICD?: No Airway Exam Known Difficult Airway: No Mallampati Class: 2 Mouth Opening: Normal (> 3cm) Thyromental Distance: Greater than 3 cm Neck Range of Motion: Full ROM Neck Circumference: Normal Teeth Condition: Normal Dentition ASA Classification ASA Score: ASA 2 Emergency Case?: No NPO Status NPO Status: NPO Clears >2 hours, Solids >8 hours Anesthesia Plan Resuscitation Status: Full Code Anesthesia Technique: MAC Anesthesia Airway Planned: Natural Airway Monitors Used: Standard Monitors
[2024-05-01 09:03] VITALS: BMI 20.8
[2024-05-01] MEDS: Tetracaine 0.5% 4 ML BTL OD (09:16)
[2024-05-01] MEDS: Povidone-Iodine Ophth 30 ML BTL (09:17)
[2024-05-01] MEDS: Duovisc Viscoelastic System EACH 1 EACH (09:22)
[2024-05-01] MEDS: Lidocaine 1% Pres-Free 5 ML VIAL (09:22)
[2024-05-01] MEDS: Balanced Salt Soln.-PLUS 500 ML BAG OP (09:22)
[2024-05-01] MEDS: Prednisolone 1%, Moxifloxacin 0.5%, Bromfenac 0.09% 5.6ML BTL OD (09:36)
[2024-05-01 09:43] VITALS: BP 140/73; PULSE 59; RESP 18; TEMP 36.2; O2SAT 98
--- NOTE | 2024-05-01 09:43 | W.PM.DSUDISC ---
Date of service: 05/01/24 Discharge Plan Disposition Patient Disposition: Home Discharge Details Attending Provider: Frederick Neely Primary Care Provider: Hubert Cardenas Home Meds and New Rx's Prescriptions: No Action lisinopril 5 mg tablet 5 mg PO DAILY multivitamin 1 EACH tablet 1 ea PO DAILY ascorbic acid (vitamin C) [Vitamin C] 500 MG tablet 500 mg PO DAILY terazosin 10 mg capsule 5 mg PO DAILY latanoprost 0.005 % drops 1 drp ophthalmic (eye) QPM Patient Comments: INSTILL 1 DROP IN EACH EYE EVERY EVENING doxazosin [Cardura] 4 mg tablet 4 mg PO QHS atorvastatin 10 mg tablet 10 mg PO QPM Patient Comments: TAKE ONE TABLET BY MOUTH EVERY EVENING TO PREVENT HEART DISEASE Discharge Instructions Stand Alone Forms: DSU Post-Op CataractJosselyn (DSU) Discharge Orders Discharge Orders: Discharge Order (Routine); Ordered 05/01/24 Ordered By: Frederick Neely DS: Diagnosis Discharge Diagnosis (1) Nuclear age-related cataract, right eye: Status: Resolved
--- NOTE | 2024-05-01 09:43 | W.PM.OP ---
Operative Note Operative Note PRE-OP DIAGNOSIS: Nuclear cataract, right eye POST-OP DIAGNOSIS: same PROCEDURE: Cataract extraction using phacoemulsification with intraocular lens implant, right eye SURGEON: Frederick Neely ANESTHESIA TYPE: Local By Surgeon and MAC Refer to Anesthesia Record ESTIMATED BLOOD LOSS: 0 PATHOLOGY: none sent COMPLICATIONS: None Patient was transported to: same day Patient's condition: stable Implants: Babak Clareon [id number] Indications: Progressive decreased vision due to cataract, right eye Procedure Description: CATARACT SURGERY OPERATIVE REPORT PREOPERATIVE DIAGNOSIS: Nuclear cataract, right eye POSTOPERATIVE DIAGNOSIS: Same OPERATION: Cataract extraction using phacoemulsification with posterior chamber intraocular lens implant, right eye. IOL: IOL Senior Research Project Manager/Model: Babak Clareon [id number] IOL Power: + 23.0 diopters IOL Serial Number: [id number] Optic Diameter: 6.0mm Haptic/Overall Diameter: 13.0mm PHACO INFO: Babak Centurion Vision System with OZil and Active Fluidics Cumulative Dispersed Energy (CDE): 12.75 seconds SURGEON: Frederick Neely MD, ANDREA ANESTHESIA: Monitored Anesthesia Care (MAC), with local sub-tenon's anesthetic infiltration COMPLICATIONS: None SPECIMENS: None INDICATIONS FOR PROCEDURE: The patient is a 84-year-old male with history of diminished visual acuity in his right eye secondary to the development of nuclear cataract. He is significantly symptomatic that he desires cataract surgery and attempt to improve and maximize his vision. The option of cataract surgery was offered to the patient and he wished to proceed. See office notes for detailed information. PROCEDURE: The correct surgical eye was identified and marked as the right eye and the pupil was dilated in the preoperative area using mydriatics and cycloplegics. The dilated pupil size was 6.0 mm. The patient elected to proceed without oral sedation. The patient was brought to the operating room where cardiopulmonary monitoring was instituted and surgical time-out was performed, confirming the correct operative eye and IOL power. Topical anesthesia was administered and ophthalmic povidone-iodine 5% was instilled into the conjunctival fornices. The dayton-ocular area was prepped with Betadine 10% solution and draped in the usual sterile fashion for intraocular surgery, including an aperture drape. A Tegaderm transparent film dressing was cut in half and used to cover the lashes and lid margins. Care was taken to sequester the lashes and lid margins under the Tegaderm dressing. A lid speculum was placed between the lids of the operative eye and the Babak LuxOR Revalia operating microscope was maneuvered into position. Prem scissors were then used to make a conjunctival buttonhole approximately 6mm posterior to the limbus in the inferonasal quadrant. Blunt dissection was carried out to expose bare sclera, and a blunt-tipped sub-tenon?s anesthesia cannula was introduced and passed posteriorly along the globe where non-preserved plain lidocaine was injected into posterior sub-Tenon?s space. A sideport knife was used to make a paracentesis port. Intraocular phenylephrine/lidocaine was injected into the anterior chamber. The anterior chamber was then filled with viscoelastic. A keratome knife was used to construct a two--plane clear corneal tunnel extending 2.0mm into clear cornea. A flap was raised on the anterior capsule and capsulorhexis forceps were used to complete a continuous curvilinear capsulorhexis of 5.5 mm. Balanced salt solution was then used to perform cortical cleaving hydrodissection and nuclear hydrodelineation until the lens could be freely rotated within the capsular bag. The lens nucleus was then disassembled and removed within the capsular bag and iris plane using phacoemulsification. Residual cortical material was removed using the I/A handpiece. The posterior capsule was carefully polished to remove as much residual lens epithelial cells as safely possible. The capsular bag was then inflated and the anterior chamber deepened with cohesive viscoelastic. The lens implant described above was inserted into the capsular bag using the Babak Autonome Injector. A Kuglen hook was used to dial the IOL into position. Residual viscoelastic was then removed first from posterior to the IOL, then from the anterior chamber using the I/A handpiece. The lens implant was noted to center nicely within the capsular bag. The incisions were stromally hydrated, and the anterior chamber was reformed using BSS. Then 0.5cc of moxifloxacin 1.0mg/ml were injected into the capsular bag and anterior chamber. The incisions were checked with a Weck spear and found to be secure. Several drops of ophthalmic povidone-iodine 5% were then applied to the eye followed by two drops of combination steroid/NSAID/antibiotic solution. The drapes were removed and a clear plastic protective eye shield was placed over the eye. The patient was then returned to Same Day Surgery in stable condition. Date of Procedure: 05/01/24
--- NOTE | 2024-05-01 09:53 | W.ANESPOSTOP ---
Postoperative Evaluation Date, Time and Location Date Performed: 05/01/24 Time Performed: 09:45 Patient Location: Day Surgery Unit Vital Signs Most Recent Imported Vital Signs: Most Recent Vital Signs Temp Pulse Resp BP Pulse Ox 36.4 C L 65 18 139/67 99 05/01/24 07:15 05/01/24 07:15 05/01/24 07:15 05/01/24 07:15 05/01/24 07:15 Assessment Mental Status: Awake (Alert & Oriented to Patient Baseline) Airway and Respiratory Function: Patent airway with normal (patient baseline) respiratory exam Cardiovascular Function: Hemodynamically Stable Hydration Status: Adequately Hydrated Nausea & Vomiting: No Nausea or Vomiting Pain: Pt. Denies Any Pain Peripheral Nerve Block: Patient did not receive a nerve block
== END 2024-05-01 10:04 | disposition home or self-care (01) ==
LOC: SUR 06:44
PROVIDERS: PCP Family Medicine; Visit Provider Ophthalmology
PROC: (CPT 66984; principal; 2024-05-01 09:30)
DX: H25.11 Age-related nuclear cataract, right eye (principal)
CPT/HCPCS: 66984; 00123; V2632; J2003

== ENCOUNTER 2024-05-15 07:01 | Day surgery (SDC) | payer MEDICARE, SELFPAY ==
--- NOTE | 2024-05-15 06:30 | W.ANESPRE ---
General Info Date of Service Date Performed: 05/15/24 Height: 5 ft 8 in Weight: 62.2 kg Body Mass Index (BMI): 20.8 Surgical Procedure: Operation Date: 05/15/24 09:40 Proposed Procedure Side Surgeon p Cataract Extraction with IOL Implant Left Frederick Neely MD Meds Allergies and Home Medications Allergies Allergy/AdvReac Type Severity Reaction Status Date / Time ciprofloxacin (From Cipro) AdvReac Intermediate Skin Rash Verified 05/15/24 07:26 BEE STINGS Allergy Anaphylaxis Uncoded 05/15/24 07:26 Home Medication ?Medication ?Instructions ?Recorded ascorbic acid (vitamin C) 500 mg 500 mg PO DAILY 11/19/12 tablet (Vitamin C) multivitamin 1 ea PO DAILY 11/19/12 lisinopril 5 mg tablet 5 mg PO DAILY 10/28/18 terazosin 10 mg capsule 5 mg PO DAILY 08/29/21 atorvastatin 10 mg tablet 10 mg PO QPM 04/29/24 doxazosin 4 mg tablet (Cardura) 4 mg PO QHS 04/29/24 latanoprost 0.005 % eye drops 1 drp ophthalmic (eye) QPM 04/29/24 Current Visit Medications: Current Medications Generic Name Dose Route Start Last Admin Trade Name Freq PRN Reason Stop Dose Admin Acetaminophen 1,000 mg 05/15/24 06:00 Acetaminophen 500 Mg Tab PO 06/14/24 05:59 Q4H PRN PRN Balanced Salt Solution 500 ml 05/15/24 06:00 Balanced Salt Soln.-Plus 500 Ml Bag OP 06/14/24 05:59 DIRECTED YANIQUE Miscellaneous Medication 0 ml 05/15/24 06:00 Prednisolone 1%, Moxifloxacin 0.5%, Bromfenac 0.09% 5.6ml Btl OS 06/14/24 05:59 DIRECTED YANIQUE Miscellaneous Medication 0 ml 05/15/24 06:00 Tropicam./Phenyleph. (1/2.5%) 5 Ml Btl OS 06/14/24 05:59 DIRECTED YANIQUE Tetracaine HCl 0 ml 05/15/24 06:00 Tetracaine 0.5% 4 Ml Btl OS 06/14/24 05:59 DIRECTED YANIQUE PFSH Active Problems Active Problems: Problem Status Onset Code Nuclear age-related cataract, left eye Acute H25.12 Nuclear age-related cataract, right eye Resolved H25.11 DVT prophylaxis Acute Z29.9 Discharge planning issues Acute Z02.9 Hyperlipidemia Acute E78.5 Hypertension Chronic I10 Coarse tremors Acute G25.2 Gross hematuria Acute R31.0 Enlarged prostate Chronic N40.0 Family history of prostate cancer Chronic Z80.42 Medical History Medical History HTN (hypertension) Adenomatous colon polyp Orthostatic dizziness Left inguinal hernia Bee sting allergy Hyperlipidemia Hypercholesterolemia Dysthymia Seborrheic keratosis Low back pain Male erectile disorder Essential hypertension BPH AVM LEFT COLON Surgical History Surgical History Hx of cystoscopy H/O inguinal hernia repair Colonoscopy - IV Sedation [facility]-09/25/07 Tobacco Smoking/Tobacco Use Status: Former Tobacco Use Alcohol Alcohol Intake: former Substance Use Substance use: Never Substance use type: does not use Vital Signs and Lab Results Lab Results Blood Type / Crossmatch: No Data to Display Complete Blood Count: No Data to Display Complete Metabolic Panel: No Data to Display Liver Function Panel: No Data to Display Coagulation Panel: No Data to Display Cardiac Panel: No Data to Display Arterial Blood Gas: No Data to Display Venous Blood Gas: No Data to Display Pancreas Panel: No Data to Display Thyroid Panel: No Data to Display Infectious Disease: No Data to Display Blood Cultures: No Data to Display Toxicology Panel: No Data to Display Anesthesia Assessment and Plan Anesthesia History Personal History: No History of Anesthesia Complications Family History: No Family History of Anesthesia Complications Exercise Tolerance Exercise Tolerance: Metabolic Equivalents>4 Cardiac & Pulmonary Exam Cardiac Exam: Normal S1/S2 Heart Sounds Pulmonary Exam: Clear Bilateral Breath Sounds Implantable Cardiac Device Does patient have a Pacemaker or an ICD?: No Airway Exam Known Difficult Airway: No Mallampati Class: 2 Mouth Opening: Normal (> 3cm) Thyromental Distance: Greater than 3 cm Neck Range of Motion: Full ROM Neck Circumference: Normal Teeth Condition: Normal Dentition ASA Classification ASA Score: ASA 2 Emergency Case?: No NPO Status NPO Status: NPO Clears >2 hours, Solids >8 hours Anesthesia Plan Resuscitation Status: Full Code Anesthesia Technique: MAC Anesthesia Airway Planned: Natural Airway Monitors Used: Standard Monitors Preoperative Comments:: Repeat cataract. no MKO previously. no issues. No changes in health history.
[2024-05-15 07:23] VITALS: BP 131/65; PULSE 60; RESP 18; TEMP 36.3; O2SAT 100
[2024-05-15] MEDS: Tropicam./Phenyleph. (1/2.5%) 5 ML BTL OS ×3 (07:27→07:37)
[2024-05-15 08:03] VITALS: BMI 20.8
[2024-05-15] MEDS: Duovisc Viscoelastic System EACH 1 EACH (08:59)
[2024-05-15] MEDS: Lidocaine 1% Pres-Free 5 ML VIAL (09:00)
[2024-05-15] MEDS: Phenylephrine/Lidocaine (15/10) MG/ML 1 ML VIAL (09:01)
[2024-05-15] MEDS: Povidone-Iodine Ophth 30 ML BTL (09:02)
[2024-05-15] MEDS: Balanced Salt Soln.-PLUS 500 ML BAG OP (09:03)
[2024-05-15] MEDS: Tetracaine 0.5% 4 ML BTL OS (09:03)
[2024-05-15] MEDS: Prednisolone 1%, Moxifloxacin 0.5%, Bromfenac 0.09% 5.6ML BTL OS (09:04)
[2024-05-15 09:18] VITALS: BP 142/74; PULSE 59; RESP 14; TEMP 36.5; O2SAT 100
--- NOTE | 2024-05-15 09:25 | ROE_ITS ---
Operative Note Operative Note PRE-OP DIAGNOSIS: Nuclear cataract, left eye POST-OP DIAGNOSIS: same PROCEDURE: Cataract extraction using phacoemulsification with intraocular lens implant, left eye SURGEON: Frederick Neely ANESTHESIA TYPE: Local By Surgeon and MAC Refer to Anesthesia Record PATHOLOGY: none sent COMPLICATIONS: None Patient was transported to: same day Patient's condition: stable Implants: Babak Clareon [id number] Indications: Progressive decreased vision due to cataract, left eye Procedure Description: CATARACT SURGERY OPERATIVE REPORT PREOPERATIVE DIAGNOSIS: Nuclear cataract, left eye POSTOPERATIVE DIAGNOSIS: Same OPERATION: Cataract extraction using phacoemulsification with posterior chamber intraocular lens implant, left eye. IOL: IOL Psychologist Social/Model: Babak Clareon [id number] IOL Power: + 23.5 diopters IOL Serial Number: [id number] Optic Diameter: 6.0mm Haptic/Overall Diameter: 13.0mm PHACO INFO: Babak JewelStreeturion Vision System with OZil and Active Fluidics Cumulative Dispersed Energy (CDE): 10.63 seconds SURGEON: Frederick Neely MD, ANDREA ANESTHESIA: Monitored Anesthesia Care (MAC), with local sub-tenon's anesthetic infiltration COMPLICATIONS: None SPECIMENS: None INDICATIONS FOR PROCEDURE: The patient is an 84-year-old male with history of diminished visual acuity in b oth eyes secondary to the development of bilateral nuclear cataract. He has already undergone cataract surgery in the right eye and is doing well postoperatively. He now presents for cataract surgery in the left eye. See office notes for detailed information. PROCEDURE: The correct surgical eye was identified and marked as the left eye and the pupil was dilated in the preoperative area using mydriatics and cycloplegics. The dilated pupil size was 6.0 mm. The patient elected to proceed without oral sedation. The patient was brought to the operating room where cardiopulmonary monitoring was instituted and surgical time-out was performed, confirming the correct operative eye and IOL power. Topical anesthesia was administered and ophthalmic povidone-iodine 5% was instilled into the conjunctival fornices. The dayton-ocular area was prepped with Betadine 10% solution and draped in the usual sterile fashion for intraocular surgery, including an aperture drape. A Tegaderm transparent film dressing was cut in half and used to cover the lashes and lid margins. Care was taken to sequester the lashes and lid margins under the Tegaderm dressing. A lid speculum was placed between the lids of the operative eye and the Babak LuxOR Revalia operating microscope was maneuvered into position. Prem scissors were then used to make a conjunctival buttonhole approximately 6mm posterior to the limbus in the inferonasal quadrant. Blunt dissection was carried out to expose bare sclera, and a blunt-tipped sub-tenon?s anesthesia cannula was introduced and passed posteriorly along the globe where non- preserved plain lidocaine was injected into posterior sub-Tenon?s space. A sideport knife was used to make a paracentesis port. Intraocular phenylephrine/lidocaine was injected into the anterior chamber. The anterior chamber was then filled with viscoelastic. A keratome knife was used construct a two-plane clear corneal tunnel extending 2.0mm into clear c ornea. A flap was raised on the anterior capsule and capsulorhexis forceps were used to complete a continuous curvilinear capsulorhexis of 5.0 mm. Balanced salt solution was then used to perform cortical cleaving hydrodissection and nuclear hydrodelineation until the lens could be freely rotated within the capsular bag. The lens nucleus was then disassembled and removed within the capsular bag and iris plane using phacoemulsification. Residual cortical material was removed using the irrigation/aspiration handpiece. The posterior capsule was carefully polished to remove as much residual lens epithelial cells as safely possible. The capsular bag was then inflated and the anterior chamber deepened with viscoelastic. The lens implant described above was inserted into the capsular bag using the Babak Autonome Injector. A Kuglen hook was used to dial the IOL into position. Residual viscoelastic was then removed first from posterior to the IOL, then from the anterior chamber using the I/A handpiece. The lens implant was noted to center nicely within the capsular bag. The incisions were stromally hydrated, and the anterior chamber was reformed using BSS. Then 0.5cc of moxifloxacin 1.0mg/ml were injected into the capsular bag and anterior chamber. The incisions were checked with a Weck spear and found to be secure. Several drops of ophthalmic povidone-iodine 5% were then applied to the eye followed by two drops of combination steroid/NSAID/antibiotic solution. The drapes were removed and a clear plastic protective eye shield was placed over the eye. The patient was then returned to Same Day Surgery in stable condition. Date of Procedure: 05/15/24
--- NOTE | 2024-05-15 09:25 | W.PM.DSUDISC ---
Date of service: 05/15/24 Discharge Plan Disposition Patient Disposition: Home Discharge Details Attending Provider: Frederick Neely Primary Care Provider: Hubert Cardenas Home Meds and New Rx's Prescriptions: No Action lisinopril 5 mg tablet 5 mg PO DAILY multivitamin 1 EACH tablet 1 ea PO DAILY ascorbic acid (vitamin C) [Vitamin C] 500 MG tablet 500 mg PO DAILY terazosin 10 mg capsule 5 mg PO DAILY latanoprost 0.005 % drops 1 drp ophthalmic (eye) QPM Patient Comments: INSTILL 1 DROP IN EACH EYE EVERY EVENING doxazosin [Cardura] 4 mg tablet 4 mg PO QHS atorvastatin 10 mg tablet 10 mg PO QPM Patient Comments: TAKE ONE TABLET BY MOUTH EVERY EVENING TO PREVENT HEART DISEASE Discharge Instructions Stand Alone Forms: DSU Post-Op CataractJosselyn (DSU) Discharge Orders Discharge Orders: Discharge Order (Routine); Ordered 05/15/24 Ordered By: Frederick Neely DS: Diagnosis Discharge Diagnosis (1) Nuclear age-related cataract, left eye: Status: Resolved
--- NOTE | 2024-05-15 09:35 | W.ANESPOSTOP ---
Postoperative Evaluation Date, Time and Location Date Performed: 05/15/24 Time Performed: 07:30 Patient Location: Day Surgery Unit Vital Signs Most Recent Imported Vital Signs: Most Recent Vital Signs Temp Pulse Resp BP Pulse Ox 36.5 C 59 L 14 142/74 H 100 05/15/24 09:18 05/15/24 09:18 05/15/24 09:18 05/15/24 09:18 05/15/24 09:18 Pain Score Most Recent Pain Score: Most Recent Pain Score Pain Level 0 05/15/24 09:18 Assessment Mental Status: Awake (Alert & Oriented to Patient Baseline) Airway and Respiratory Function: Patent airway with normal (patient baseline) respiratory exam Cardiovascular Function: Hemodynamically Stable Hydration Status: Adequately Hydrated Nausea & Vomiting: No Nausea or Vomiting Pain: Pt. Denies Any Pain Peripheral Nerve Block: Patient did not receive a nerve block
== END 2024-05-15 09:40 | disposition home or self-care (01) ==
LOC: SUR 07:01
PROVIDERS: PCP Family Medicine; Visit Provider Ophthalmology
PROC: (CPT 66984; principal; 2024-05-15 09:30)
DX: H25.12 Age-related nuclear cataract, left eye (principal); Z98.41 Cataract extraction status, right eye
CPT/HCPCS: 66984; 00123; V2632; J2003

== ENCOUNTER 2024-07-07 18:17 | Outpatient (REF) | payer MEDICARE, SELFPAY ==
[2024-07-07 14:32] LABS: BUN 10 mg/dL (7-18); CREATININE 0.8 mg/dL (0.70-1.30); Calcium 9.4 mg/dL (8.5-10.1); Chloride 109 mmol/L (98-107); Estimated GFR 87.81 (mL/min/1.73m2); Glucose 94 mg/dL (74-106); Potassium 4.2 mmol/L (3.5-5.1); Sodium 146 mmol/L (136-145)
== END 2024-07-07 18:18 | disposition home or self-care (01) ==
LOC: NCHCN 18:17
PROVIDERS: PCP Family Medicine; Visit Provider Family Medicine
DX: I10 Essential (primary) hypertension (principal)
CPT/HCPCS: 80048

== ENCOUNTER 2024-09-10 13:09 | Outpatient (CLI) | payer MEDICARE, SELFPAY ==
[2024-09-10 22:18] LABS: PSA, Diagnostic 3.8 ng/mL (<=6.5)
== END 2024-09-10 13:10 | disposition home or self-care (01) ==
LOC: LBO 13:10
PROVIDERS: PCP Family Medicine; Visit Provider Urology
DX: N13.8 Other obstructive and reflux uropathy (principal); N40.1 Benign prostatic hyperplasia with lower urinary tract symptoms
CPT/HCPCS: 36415; 84153

== ENCOUNTER → 2024-09-18 12:52 | Outpatient (BNVA) | payer MEDICARE, SELFPAY | PROVIDERS: PCP Family Medicine; Visit Provider Urology | DX: N40.1 Benign prostatic hyperplasia with lower urinary tract symptoms (principal); Z80.42 Family history of malignant neoplasm of prostate | CPT/HCPCS: 99213 ==